=== PATIENT | male | born 1970 | race African-American/Black ===

== ENCOUNTER 2016-04-29 19:11 | Inpatient (IN) | payer MEDICAID ==
[~2016-04-29] VITALS: Ht 185.4 cm; Wt 84.4 kg
[~2016-04-29 19:11] MED LIST: RISP3 PO
[2016-04-29] MEDS ORDERED: ZOLPIDEM TARTRATE 10 MG TABLET PO PRN (19:45)
[2016-04-29] MEDS ORDERED: HALOPERIDOL 5 MG TABLET PO PRN (19:45)
[2016-04-29] MEDS ORDERED: LORazepam 2 MG TABLET PO PRN (19:45)
[2016-04-29] MEDS ORDERED: INFLUENZA VIRUS VACCINE QVS 2016-17 (3YR+)/PF 60 MCG/0.5 ML SYRINGE IM ONE (19:45)
[2016-04-29] MEDS ORDERED: LORazepam 2 MG/ML VIAL IM ONE (20:00)
[2016-04-29] MEDS ORDERED: HALOPERIDOL LACTATE 5 MG/ML VIAL IM ONE (20:00)
[2016-04-29] MEDS ORDERED: DiphenhydrAMINE HCL 50 MG/ML VIAL IM ONE (20:00)
[2016-04-29 20:15] VITALS: BP 128/72
[2016-04-29 20:45] VITALS: BP 119/69
[2016-04-30 08:23] VITALS: BP 108/62
[2016-04-30 08:31] LABS: BASOPHILS % (AUTO) 0.6 % (0.0-2.0); EOSINOPHILS % (AUTO) 4.1 % (1.0-6.0); HEMATOCRIT 37.3 % (41-53); HEMOGLOBIN 12.3 g/dL (13.5-17.5); LYMPHOCYTES # (AUTO) 2.1 K/uL (1.0-4.8); LYMPHOCYTES % (AUTO) 53.6 % (22.0-44.0); MEAN CORPUSCULAR HEMOGLOBIN 29.7 pg (26.0-34.0); MEAN CORPUSCULAR HGB CONC 32.9 G/dL (31.0-37.0); MEAN CORPUSCULAR VOLUME 90 fL (80-100); MONOCYTES # (AUTO) 0.3 K/uL (0.1-1.0); MONOCYTES % (AUTO) 8.6 % (2.0-9.0); NEUTROPHILS # (AUTO) 1.3 K/uL (1.8-7.7); NEUTROPHILS % (AUTO) 33.1 % (40.0-70.0); PLATELET COUNT (AUTO) 257 K/uL (150-450); RED BLOOD CELL COUNT(AUTO) 4.14 MIL/uL (4.50-5.90); RED CELL DISTRIBUTION WIDTH 13.9 % (11.5-14.5); WHITE BLOOD COUNT (AUTO) 3.9 K/uL (4.5-11.0)
[2016-04-30 09:00] LABS: ALANINE AMINOTRANSFERASE 27 U/L (12-78); ALBUMIN 3.3 g/dL (3.4-5.0); ANION GAP 8 mmol/L (8-16); ASPARTATE AMINOTRANSFERASE 25 U/L (15-37); BILIRUBIN,TOTAL 0.5 mg/dL (0.1-1.0); CALCIUM, TOTAL 8.4 mg/dL (8.8-10.5); CARBON DIOXIDE 28 mmol/L (22-29); CHLORIDE 110 mmol/L (98-107); CHOL/HDL RATIO 1.5 (4.2-7.3); CREATININE 0.99 mg/dL (0.60-1.30); GLOMERULAR FILTR. RATE CALC > 60 mL/min (>60); POTASSIUM 3.8 mmol/L (3.5-5.1); SODIUM SERUM 146 mmol/L (136-145); TOTAL PROTEIN, SERUM 6.3 g/dL (6.4-8.2); UREA NITROGEN, BLOOD 9 mg/dL (7-18)
[2016-04-30] MEDS: NICOTINE 14 MG/24 HOUR PATCH TD SCH (09:00)
[2016-04-30 09:32] LABS: THYROID STIMULATING HORMONE 0.78 uIU/mL (0.36-3.74)
[2016-04-30] MEDS ORDERED: MAGNESIUM HYDROXIDE SUSPENSION 30 ML UDCUP PO PRN (09:45)
[2016-04-30] MEDS ORDERED: ONDANSETRON HCL 4 MG TABLET PO PRN (09:45)
[2016-04-30] MEDS ORDERED: ACETAMINOPHEN 325 MG TABLET PO PRN (09:45)
[2016-04-30] MEDS ORDERED: PETROLATUM,WHITE 71 GM JELLY TP PRN (09:45)
[2016-04-30] MEDS ORDERED: CloNIDine HCL 0.1 MG TABLET PO PRN (09:45)
[2016-04-30] MEDS ORDERED: BACITRACIN 28.4 GM OINTMENT TP PRN (09:45)
[2016-04-30] MEDS ORDERED: IBUPROFEN 600 MG TABLET PO PRN (09:45)
[2016-04-30] MEDS ORDERED: BENZOCAINE/MENTHOL LOZENGE MM PRN (09:45)
[2016-04-30] MEDS ORDERED: ALBUTEROL SULFATE HFA 90 MCG/PUFF 8 GM INHALER IH PRN (09:45)
[2016-04-30] MEDS ORDERED: LOPERAMIDE HCL 2 MG CAPSULE PO PRN (09:45)
[2016-04-30 10:46] LABS: HEMOGLOBIN A1C 5.2 % (4.5-6.2)
[2016-04-30 16:00] VITALS: BP 130/77
[2016-05-01 06:30] VITALS: BP 110/61
[2016-05-01 08:19] VITALS: BP 102/68
[2016-05-01 08:48] LABS: ANION GAP 7 mmol/L (8-16); CALCIUM, TOTAL 8.8 mg/dL (8.8-10.5); CARBON DIOXIDE 32 mmol/L (22-29); CHLORIDE 105 mmol/L (98-107); CREATININE 1.03 mg/dL (0.60-1.30); GLOMERULAR FILTR. RATE CALC > 60 mL/min (>60); POTASSIUM 3.9 mmol/L (3.5-5.1); SODIUM SERUM 144 mmol/L (136-145); UREA NITROGEN, BLOOD 8 mg/dL (7-18)
[2016-05-01] MEDS: NICOTINE 14 MG/24 HOUR PATCH TD SCH (09:00)
[2016-05-01] MEDS: RisperiDONE 3 MG TABLET PO SCH ×2 (09:00→16:34)
[2016-05-01 16:32] VITALS: BP 123/74
[2016-05-02 06:44] VITALS: BP 105/66
[2016-05-02 08:26] VITALS: BP 119/67
[2016-05-02] MEDS: NICOTINE 14 MG/24 HOUR PATCH TD SCH (09:00)
[2016-05-02] MEDS: RisperiDONE 3 MG TABLET PO SCH ×2 (09:09→17:19)
[2016-05-02 16:08] VITALS: BP 120/72
[2016-05-03 06:35] VITALS: BP 107/63
[2016-05-03 08:44] VITALS: BP 122/69
[2016-05-03] MEDS: NICOTINE 14 MG/24 HOUR PATCH TD SCH (08:51)
[2016-05-03] MEDS: RisperiDONE 3 MG TABLET PO SCH ×2 (08:51→17:00)
[2016-05-03 16:19] VITALS: BP 127/78
[2016-05-03] MEDS: MAG HYDROX/AL HYDROX/SIMETH ES 30 ML SUSPENSION UDCUP PO PRN (21:11)
[2016-05-04 08:39] VITALS: BP 122/68
[2016-05-04] MEDS: NICOTINE 14 MG/24 HOUR PATCH TD SCH (09:00)
[2016-05-04] MEDS: RisperiDONE 3 MG TABLET PO SCH ×2 (09:00→16:18)
[2016-05-04] MEDS: OMEPRAZOLE 20 MG CAPSULE PO SCH (11:18)
[2016-05-04 14:18] VITALS: BP 118/72
[2016-05-04 16:07] VITALS: BP 137/83
[2016-05-05] MEDS: MAG HYDROX/AL HYDROX/SIMETH ES 30 ML SUSPENSION UDCUP PO PRN (00:35)
[2016-05-05 00:57] VITALS: BP 128/83
[2016-05-05] MEDS: OMEPRAZOLE 20 MG CAPSULE PO SCH (08:39)
[2016-05-05] MEDS: NICOTINE 14 MG/24 HOUR PATCH TD SCH (08:40)
[2016-05-05] MEDS: RisperiDONE 3 MG TABLET PO SCH (08:40)
[2016-05-05 09:08] VITALS: BP 117/62
[2016-05-05] MEDS ORDERED: OMEP20 PO (09:58)
[2016-05-05] MEDS ORDERED: LORazepam 2 MG/ML VIAL ONE (11:26)
[2016-05-05] MEDS ORDERED: DiphenhydrAMINE HCL 50 MG/ML VIAL ONE (11:26)
[2016-05-05] MEDS ORDERED: HALOPERIDOL LACTATE 5 MG/ML VIAL ONE (11:26)
== END 2016-05-05 12:19 | disposition home or self-care (01) | DRG 750 ==
LOC: B3A 19:54 → EDSTATUS 19:59 → B3A 05-04 18:51
PROVIDERS: ADMIT Psychiatry & Neurology Psychiatry; ATTEND Psychiatry & Neurology Psychiatry
DX: F20.0 Paranoid schizophrenia (principal); E87.0 Hyperosmolality and hypernatremia; E83.51 Hypocalcemia; E44.1 Mild protein-calorie malnutrition; F17.210 Nicotine dependence, cigarettes, uncomplicated; F10.10 Alcohol abuse, uncomplicated; F12.90 Cannabis use, unspecified, uncomplicated; F14.90 Cocaine use, unspecified, uncomplicated; K21.9 Gastro-esophageal reflux disease without esophagitis; F15.10 Other stimulant abuse, uncomplicated; Z71.6 Tobacco abuse counseling; Z79.899 Other long term (current) drug therapy; Z88.6 Allergy status to analgesic agent; Z68.24 Body mass index [BMI] 24.0-24.9, adult; Z28.21 Immunization not carried out because of patient refusal
CPT/HCPCS: 82306; 83036; 84439; 84443; 90471; J1200; J1630; J2060

== ENCOUNTER 2016-05-13 05:02 | Inpatient (IN) | payer MEDICAID ==
[~2016-05-13] VITALS: Ht 185.4 cm; Wt 85.8 kg
[~2016-05-13 05:02] MED LIST changes: +OMEP20 PO
[2016-05-13] MEDS ORDERED: LORazepam 1 MG TABLET PO PRN (09:15)
[2016-05-13] MEDS ORDERED: HALOPERIDOL 5 MG TABLET PO PRN (09:15)
[2016-05-13] MEDS ORDERED: ZOLPIDEM TARTRATE 5 MG TABLET PO PRN (09:15)
[2016-05-13 09:49] VITALS: BP 107/68
[2016-05-13] MEDS ORDERED: RISP2 PO (10:49)
[2016-05-13 16:14] VITALS: BP 113/64
[2016-05-13] MEDS ORDERED: IBUPROFEN 600 MG TABLET PO PRN (16:15)
[2016-05-13] MEDS ORDERED: MAG HYDROX/AL HYDROX/SIMETH ES 30 ML SUSPENSION UDCUP PO PRN (16:15)
[2016-05-13] MEDS ORDERED: MAGNESIUM HYDROXIDE SUSPENSION 30 ML UDCUP PO PRN (16:15)
[2016-05-13] MEDS ORDERED: BACITRACIN 28.4 GM OINTMENT TP PRN (16:15)
[2016-05-13] MEDS ORDERED: ACETAMINOPHEN 325 MG TABLET PO PRN (16:15)
[2016-05-13] MEDS ORDERED: BENZOCAINE/MENTHOL LOZENGE MM PRN (16:15)
[2016-05-13] MEDS ORDERED: ALBUTEROL SULFATE HFA 90 MCG/PUFF 8 GM INHALER IH PRN (16:15)
[2016-05-13] MEDS ORDERED: ONDANSETRON HCL 4 MG TABLET PO PRN (16:15)
[2016-05-13] MEDS ORDERED: CloNIDine HCL 0.1 MG TABLET PO PRN (16:15)
[2016-05-13] MEDS ORDERED: LOPERAMIDE HCL 2 MG CAPSULE PO PRN (16:15)
[2016-05-13] MEDS ORDERED: PETROLATUM,WHITE 71 GM JELLY TP PRN (16:15)
[2016-05-13 18:12] VITALS: BP 128/79
[2016-05-14 08:43] VITALS: BP 116/70
[2016-05-14] MEDS: RisperiDONE 2 MG TABLET PO SCH ×2 (09:00→17:00)
[2016-05-14 16:09] VITALS: BP 117/66
[2016-05-15 02:23] VITALS: BP 128/60
[2016-05-15 08:18] VITALS: BP 100/58
[2016-05-15] MEDS: RisperiDONE 2 MG TABLET PO SCH ×2 (09:00→17:27)
[2016-05-15 16:22] VITALS: BP 116/68
[2016-05-15] MEDS: OMEPRAZOLE 20 MG CAPSULE PO SCH (17:27)
[2016-05-15] MEDS: MUPIROCIN CALCIUM 2% 22 GM OINTMENT TP SCH (17:27)
[2016-05-16 08:30] VITALS: BP 112/61
[2016-05-16] MEDS: OMEPRAZOLE 20 MG CAPSULE PO SCH (09:26)
[2016-05-16] MEDS: RisperiDONE 2 MG TABLET PO SCH ×2 (09:26→16:35)
[2016-05-16] MEDS: MUPIROCIN CALCIUM 2% 22 GM OINTMENT TP SCH ×2 (09:29→16:35)
[2016-05-16 16:27] VITALS: BP 110/71
[2016-05-17] MEDS: OMEPRAZOLE 20 MG CAPSULE PO SCH (09:25)
[2016-05-17] MEDS: RisperiDONE 2 MG TABLET PO SCH ×2 (09:25→17:06)
[2016-05-17] MEDS: MUPIROCIN CALCIUM 2% 22 GM OINTMENT TP SCH ×2 (09:26→17:06)
[2016-05-17 10:04] VITALS: BP 103/69
[2016-05-17 16:15] VITALS: BP 103/63
[2016-05-18 08:02] LABS: APPEARANCE,URINE CLEAR (CLEAR); GLUCOSE, URINE (UA) NEGATIVE (NEGATIVE); KETONES,URINE NEGATIVE (NEGATIVE); LEUKOCYTE ESTERASE ,URINE NEGATIVE (NEGATIVE); OCCULT BLOOD,URINE NEGATIVE (NEGATIVE); PROTEIN,URINE NEGATIVE (NEGATIVE)
[2016-05-18 08:47] VITALS: BP 104/64
[2016-05-18 09:04] LABS: RBC,URINE None Seen /HPF (0-2); SQUAMOUS EPITHELIAL CELL,UR None Seen /LPF (None Seen); WBC,URINE None Seen /HPF (0-5)
[2016-05-18] MEDS: RisperiDONE 2 MG TABLET PO SCH ×2 (09:18→17:06)
[2016-05-18] MEDS: OMEPRAZOLE 20 MG CAPSULE PO SCH (09:18)
[2016-05-18] MEDS: MUPIROCIN CALCIUM 2% 22 GM OINTMENT TP SCH ×2 (09:18→17:06)
[2016-05-18 16:25] VITALS: BP 113/77
[2016-05-19 08:28] VITALS: BP 120/80
[2016-05-19] MEDS: MUPIROCIN CALCIUM 2% 22 GM OINTMENT TP SCH ×2 (09:00→16:47)
[2016-05-19] MEDS: RisperiDONE 2 MG TABLET PO SCH ×2 (11:11→16:47)
[2016-05-19] MEDS: OMEPRAZOLE 20 MG CAPSULE PO SCH (11:11)
[2016-05-19 18:50] VITALS: BP 134/83
[2016-05-20 08:53] VITALS: BP 122/88
[2016-05-20] MEDS: RisperiDONE 2 MG TABLET PO SCH (08:53)
[2016-05-20] MEDS: OMEPRAZOLE 20 MG CAPSULE PO SCH (08:53)
[2016-05-20] MEDS: MUPIROCIN CALCIUM 2% 22 GM OINTMENT TP SCH (09:00)
[2016-05-20] MEDS ORDERED: OMEP20 PO (11:37)
== END 2016-05-20 13:00 | disposition home or self-care (01) | DRG 750 ==
LOC: B2S 08:00 → EDSTATUS 08:37 → B2S 05-15 11:57 → 3EI 05-15 18:10
PROVIDERS: ADMIT Psychiatry & Neurology Psychiatry; ATTEND Psychiatry & Neurology Psychiatry
DX: F20.0 Paranoid schizophrenia (principal); E55.9 Vitamin D deficiency, unspecified; F17.200 Nicotine dependence, unspecified, uncomplicated; F12.90 Cannabis use, unspecified, uncomplicated; G47.00 Insomnia, unspecified; F15.10 Other stimulant abuse, uncomplicated; K21.9 Gastro-esophageal reflux disease without esophagitis; Z88.6 Allergy status to analgesic agent; Z59.0 Homelessness; Z22.322 Carrier or suspected carrier of Methicillin resistant Staphylococcus aureus
CPT/HCPCS: 87081

== ENCOUNTER 2016-05-21 23:57 | Inpatient (IN) | payer MEDICAID ==
[~2016-05-21] VITALS: Ht 185.4 cm; Wt 87.7 kg
[~2016-05-21 23:57] MED LIST changes: +RISP2 PO
[2016-05-22 00:43] LABS: BASOPHILS # (AUTO) 0.03 K/uL (0.00-0.20); BASOPHILS % (AUTO) 0.4 % (0.0-2.0); EOSINOPHILS # (AUTO) 0.29 K/uL (0.00-0.70); EOSINOPHILS % (AUTO) 4.38 % (1.0-6.0); HEMOGLOBIN 13.3 g/dL (13.5-17.5); LYMPHOCYTES # (AUTO) 2.9 K/uL (1.0-4.8); LYMPHOCYTES % (AUTO) 44.5 % (22.0-44.0); MEAN CORPUSCULAR HGB CONC 34.1 G/dL (31.0-37.0); MEAN CORPUSCULAR VOLUME 88 fL (80-100); MONOCYTES # (AUTO) 0.6 K/uL (0.1-1.0); MONOCYTES % (AUTO) 9.8 % (2.0-9.0); NEUTROPHILS # (AUTO) 2.7 K/uL (1.8-7.7); NEUTROPHILS % (AUTO) 40.9 % (40.0-70.0); PLATELET COUNT (AUTO) 283 K/uL (150-450); RED BLOOD CELL COUNT(AUTO) 4.43 MIL/uL (4.50-5.90); WHITE BLOOD COUNT (AUTO) 6.6 K/uL (4.5-11.0)
[2016-05-22 00:44] LABS: ANION GAP 8 mmol/L (8-16); CALCIUM, TOTAL 9.1 mg/dL (8.8-10.5); CARBON DIOXIDE 30 mmol/L (22-29); CHLORIDE 107 mmol/L (98-107); CREATININE 1.18 mg/dL (0.60-1.30); GLOMERULAR FILTR. RATE CALC > 60 mL/min (>60); POTASSIUM 3.4 mmol/L (3.5-5.1); SODIUM SERUM 145 mmol/L (136-145); UREA NITROGEN, BLOOD 11 mg/dL (7-18)
[2016-05-22 00:50] LABS: ALANINE AMINOTRANSFERASE 30 U/L (12-78); ASPARTATE AMINOTRANSFERASE 37 U/L (15-37); BILIRUBIN,TOTAL 0.2 mg/dL (0.1-1.0); TOTAL PROTEIN, SERUM 7.4 g/dL (6.4-8.2)
[2016-05-22] MEDS ORDERED: HALOPERIDOL 5 MG TABLET PO PRN (04:15)
[2016-05-22] MEDS ORDERED: ZOLPIDEM TARTRATE 10 MG TABLET PO PRN (04:15)
[2016-05-22] MEDS ORDERED: LORazepam 2 MG TABLET PO PRN (04:15)
[2016-05-22 05:08] VITALS: BP 128/67
[2016-05-22] MEDS ORDERED: INFLUENZA VIRUS VACCINE QVS 2016-17 (3YR+)/PF 60 MCG/0.5 ML SYRINGE IM ONE (05:15)
[2016-05-22] MEDS ORDERED: BACITRACIN 28.4 GM OINTMENT TP PRN (09:15)
[2016-05-22] MEDS ORDERED: ACETAMINOPHEN 325 MG TABLET PO PRN (09:15)
[2016-05-22] MEDS ORDERED: ONDANSETRON HCL 4 MG TABLET PO PRN (09:15)
[2016-05-22] MEDS ORDERED: LOPERAMIDE HCL 2 MG CAPSULE PO PRN (09:15)
[2016-05-22] MEDS ORDERED: MAG HYDROX/AL HYDROX/SIMETH ES 30 ML SUSPENSION UDCUP PO PRN (09:15)
[2016-05-22] MEDS ORDERED: MAGNESIUM HYDROXIDE SUSPENSION 30 ML UDCUP PO PRN (09:15)
[2016-05-22] MEDS ORDERED: PETROLATUM,WHITE 71 GM JELLY TP PRN (09:15)
[2016-05-22] MEDS ORDERED: POTASSIUM CHLORIDE 20 MEQ ER TABLET PO ONE (09:15)
[2016-05-22] MEDS ORDERED: BENZOCAINE/MENTHOL LOZENGE [8 LOZENGES/PACKET] MM PRN (09:15)
[2016-05-22] MEDS ORDERED: CloNIDine HCL 0.1 MG TABLET PO PRN (09:15)
[2016-05-22] MEDS ORDERED: IBUPROFEN 600 MG TABLET PO PRN (09:15)
[2016-05-22] MEDS ORDERED: ALBUTEROL SULFATE HFA 90 MCG/PUFF 8 GM INHALER IH PRN (09:15)
[2016-05-22 09:58] VITALS: BP 137/89
[2016-05-22] MEDS: RisperiDONE 2 MG TABLET PO SCH (16:37)
[2016-05-22 16:55] VITALS: BP 107/65
[2016-05-23 08:00] VITALS: BP 115/74
[2016-05-23] MEDS: RisperiDONE 2 MG TABLET PO SCH ×2 (09:18→17:34)
[2016-05-23 16:47] VITALS: BP 116/77
[2016-05-23] MEDS: OMEPRAZOLE 20 MG CAPSULE PO SCH (20:54)
[2016-05-24 08:00] VITALS: BP 114/74
[2016-05-24] MEDS: OMEPRAZOLE 20 MG CAPSULE PO SCH (08:54)
[2016-05-24] MEDS: RisperiDONE 2 MG TABLET PO SCH ×2 (08:54→17:11)
[2016-05-24 17:30] VITALS: BP 115/77
[2016-05-25] MEDS: RisperiDONE 2 MG TABLET PO SCH (09:47)
[2016-05-25] MEDS: OMEPRAZOLE 20 MG CAPSULE PO SCH (09:47)
[2016-05-25] MEDS ORDERED: RISP2 PO (10:02)
[2016-05-25] MEDS ORDERED: OMEP20 PO (10:03)
[2016-05-25 11:55] VITALS: BP 125/78
== END 2016-05-25 12:00 | disposition home or self-care (01) | DRG 750 ==
LOC: EMS 23:59 → 3EI 05-22 03:54
PROVIDERS: ADMIT Psychiatry & Neurology Psychiatry; ATTEND Psychiatry & Neurology Psychiatry
PROC: 3E0234Z Introduction of Serum, Toxoid and Vaccine into Muscle, Percutaneous Approach (ICD-10-PCS; principal; 2016-05-22)
DX: F25.9 Schizoaffective disorder, unspecified (principal); F22 Delusional disorders; F32.9 Major depressive disorder, single episode, unspecified; K21.9 Gastro-esophageal reflux disease without esophagitis; F17.210 Nicotine dependence, cigarettes, uncomplicated; E87.6 Hypokalemia; F12.90 Cannabis use, unspecified, uncomplicated; G47.00 Insomnia, unspecified; Z88.6 Allergy status to analgesic agent; Z71.6 Tobacco abuse counseling; Z23 Encounter for immunization
CPT/HCPCS: 84132; 87081; 99285; J3535

== ENCOUNTER 2016-05-30 19:26 | Inpatient (IN) | payer MEDICAID ==
[~2016-05-30] VITALS: Ht 185.4 cm; Wt 85.5 kg
[~2016-05-30 19:26] MED LIST changes: -RISP3 PO
[2016-05-30] MEDS ORDERED: ZOLPIDEM TARTRATE 10 MG TABLET PO PRN (20:45)
[2016-05-30] MEDS ORDERED: HALOPERIDOL 5 MG TABLET PO PRN (20:45)
[2016-05-30] MEDS ORDERED: LORazepam 2 MG TABLET PO PRN (20:45)
[2016-05-30 21:35] VITALS: BP 132/71
[2016-05-31 00:02] VITALS: BP 105/67
[2016-05-31 07:56] LABS: BASOPHILS % (AUTO) 0.7 % (0.0-2.0); EOSINOPHILS % (AUTO) 7.5 % (1.0-6.0); HEMATOCRIT 38.1 % (41-53); HEMOGLOBIN 12.3 g/dL (13.5-17.5); LYMPHOCYTES # (AUTO) 2.4 K/uL (1.0-4.8); LYMPHOCYTES % (AUTO) 51.1 % (22.0-44.0); MEAN CORPUSCULAR HEMOGLOBIN 29.2 pg (26.0-34.0); MEAN CORPUSCULAR HGB CONC 32.4 G/dL (31.0-37.0); MEAN CORPUSCULAR VOLUME 90 fL (80-100); MONOCYTES # (AUTO) 0.4 K/uL (0.1-1.0); MONOCYTES % (AUTO) 9.6 % (2.0-9.0); NEUTROPHILS # (AUTO) 1.5 K/uL (1.8-7.7); NEUTROPHILS % (AUTO) 31.1 % (40.0-70.0); PLATELET COUNT (AUTO) 229 K/uL (150-450); RED BLOOD CELL COUNT(AUTO) 4.21 MIL/uL (4.50-5.90); WHITE BLOOD COUNT (AUTO) 4.7 K/uL (4.5-11.0)
[2016-05-31 08:15] LABS: ALANINE AMINOTRANSFERASE 34 U/L (12-78); ALBUMIN 3.6 g/dL (3.4-5.0); ANION GAP 9 mmol/L (8-16); ASPARTATE AMINOTRANSFERASE 26 U/L (15-37); BILIRUBIN,TOTAL 0.5 mg/dL (0.1-1.0); CALCIUM, TOTAL 8.6 mg/dL (8.8-10.5); CARBON DIOXIDE 28 mmol/L (22-29); CHLORIDE 105 mmol/L (98-107); CREATININE 0.92 mg/dL (0.60-1.30); GLOMERULAR FILTR. RATE CALC > 60 mL/min (>60); SODIUM SERUM 142 mmol/L (136-145); TOTAL PROTEIN, SERUM 6.6 g/dL (6.4-8.2); UREA NITROGEN, BLOOD 7 mg/dL (7-18)
[2016-05-31 08:30] VITALS: BP 107/65
[2016-05-31] MEDS ORDERED: BACITRACIN 28.4 GM OINTMENT TP PRN (08:45)
[2016-05-31] MEDS ORDERED: ALBUTEROL SULFATE HFA 90 MCG/PUFF 8 GM INHALER IH PRN (08:45)
[2016-05-31] MEDS ORDERED: IBUPROFEN 600 MG TABLET PO PRN (08:45)
[2016-05-31] MEDS ORDERED: ACETAMINOPHEN 325 MG TABLET PO PRN (08:45)
[2016-05-31] MEDS ORDERED: PETROLATUM,WHITE 71 GM JELLY TP PRN (08:45)
[2016-05-31] MEDS ORDERED: MAGNESIUM HYDROXIDE SUSPENSION 30 ML UDCUP PO PRN (08:45)
[2016-05-31] MEDS ORDERED: LOPERAMIDE HCL 2 MG CAPSULE PO PRN (08:45)
[2016-05-31] MEDS ORDERED: BENZOCAINE/MENTHOL LOZENGE MM PRN (08:45)
[2016-05-31] MEDS ORDERED: CloNIDine HCL 0.1 MG TABLET PO PRN (08:45)
[2016-05-31] MEDS ORDERED: MAG HYDROX/AL HYDROX/SIMETH ES 30 ML SUSPENSION UDCUP PO PRN (08:45)
[2016-05-31] MEDS ORDERED: ONDANSETRON HCL 4 MG TABLET PO PRN (08:45)
[2016-05-31] MEDS: CHOLECALCIFEROL (VIT D3) 1,000 UNITS TABLET PO SCH (10:34)
[2016-05-31] MEDS: DIVALPROEX SODIUM 500 MG DR TABLET PO SCH ×2 (10:45→16:29)
[2016-05-31] MEDS: RisperiDONE 2 MG TABLET PO SCH ×2 (11:27→16:29)
[2016-05-31 16:02] VITALS: BP 104/57
[2016-06-01 08:53] VITALS: BP 100/51
[2016-06-01] MEDS: CHOLECALCIFEROL (VIT D3) 1,000 UNITS TABLET PO SCH (08:53)
[2016-06-01] MEDS: RisperiDONE 2 MG TABLET PO SCH ×2 (08:53→16:10)
[2016-06-01] MEDS: DIVALPROEX SODIUM 500 MG DR TABLET PO SCH ×3 (08:54→17:00)
[2016-06-01 14:21] VITALS: BP 100/55
[2016-06-01 16:18] VITALS: BP 110/62
[2016-06-02 00:01] VITALS: BP 119/68
[2016-06-02 08:46] VITALS: BP 100/50
[2016-06-02] MEDS: DIVALPROEX SODIUM 500 MG DR TABLET PO SCH ×2 (09:00→17:00)
[2016-06-02] MEDS: RisperiDONE 2 MG TABLET PO SCH ×2 (09:08→16:25)
[2016-06-02] MEDS: CHOLECALCIFEROL (VIT D3) 1,000 UNITS TABLET PO SCH (09:08)
[2016-06-02 16:00] VITALS: BP 108/69
[2016-06-03 08:16] VITALS: BP 108/65
[2016-06-03] MEDS: DIVALPROEX SODIUM 500 MG DR TABLET PO SCH ×3 (09:00→16:39)
[2016-06-03] MEDS: RisperiDONE 2 MG TABLET PO SCH ×2 (09:19→16:34)
[2016-06-03] MEDS: CHOLECALCIFEROL (VIT D3) 1,000 UNITS TABLET PO SCH (09:19)
[2016-06-03 16:13] VITALS: BP 111/61
[2016-06-04 07:16] VITALS: BP 120/82
[2016-06-04 08:34] VITALS: BP 107/66
[2016-06-04] MEDS: DIVALPROEX SODIUM 500 MG DR TABLET PO SCH ×2 (09:00→17:00)
[2016-06-04] MEDS: CHOLECALCIFEROL (VIT D3) 1,000 UNITS TABLET PO SCH (09:57)
[2016-06-04] MEDS: RisperiDONE 2 MG TABLET PO SCH ×2 (09:57→16:24)
[2016-06-04] MEDS ORDERED: DIVA250T4 PO (15:10)
[2016-06-04] MEDS ORDERED: CHOL100034 PO (15:12)
[2016-06-04] MEDS ORDERED: ALBU2SYR PO (15:13)
[2016-06-04] MEDS ORDERED: ALBU8HFA4 IH (15:26)
[2016-06-04] MEDS ORDERED: ALBU8HFA IH (15:28)
== END 2016-06-04 20:51 | disposition home or self-care (01) | DRG 750 ==
LOC: B2S 20:35 → EDSTATUS 20:48 → B2S 06-01 18:26
PROVIDERS: ADMIT Psychiatry & Neurology Psychiatry; ATTEND Psychiatry & Neurology Psychiatry
DX: F25.9 Schizoaffective disorder, unspecified (principal); E55.9 Vitamin D deficiency, unspecified; F12.90 Cannabis use, unspecified, uncomplicated; G47.00 Insomnia, unspecified; F22 Delusional disorders; F17.200 Nicotine dependence, unspecified, uncomplicated; Z53.29 Procedure and treatment not carried out because of patient's decision for other reasons; Z71.51 Drug abuse counseling and surveillance of drug abuser; Z71.6 Tobacco abuse counseling; Z88.6 Allergy status to analgesic agent; Z79.899 Other long term (current) drug therapy; F20.9 Schizophrenia, unspecified
CPT/HCPCS: 87081

== ENCOUNTER 2016-06-27 21:11 | Emergency (ER) | payer MEDICAID ==
[~2016-06-27] VITALS: Ht 182.9 cm; Wt 104.5 kg
[~2016-06-27 21:11] MED LIST changes: +ALBU8HFA IH; +CHOL100034 PO; +DIVA250T4 PO; -OMEP20 PO
[2016-06-27 21:41] LABS: BASOPHILS # (AUTO) 0.03 K/uL (0.00-0.20); BASOPHILS % (AUTO) 0.5 % (0.0-2.0); EOSINOPHILS % (AUTO) 5.17 % (1.0-6.0); HEMATOCRIT 39.7 % (41-53); HEMOGLOBIN 13.1 g/dL (13.5-17.5); LYMPHOCYTES # (AUTO) 2.8 K/uL (1.0-4.8); LYMPHOCYTES % (AUTO) 46.7 % (22.0-44.0); MEAN CORPUSCULAR HEMOGLOBIN 29.6 pg (26.0-34.0); MEAN CORPUSCULAR VOLUME 90 fL (80-100); MONOCYTES # (AUTO) 0.5 K/uL (0.1-1.0); MONOCYTES % (AUTO) 8.1 % (2.0-9.0); NEUTROPHILS # (AUTO) 2.3 K/uL (1.8-7.7); NEUTROPHILS % (AUTO) 39.4 % (40.0-70.0); PLATELET COUNT (AUTO) 241 K/uL (150-450); RED BLOOD CELL COUNT(AUTO) 4.42 MIL/uL (4.50-5.90); RED CELL DISTRIBUTION WIDTH 13.6 % (11.5-14.5); WHITE BLOOD COUNT (AUTO) 5.9 K/uL (4.5-11.0)
[2016-06-27 21:53] LABS: ANION GAP 11 mmol/L (8-16); CALCIUM, TOTAL 8.9 mg/dL (8.8-10.5); CARBON DIOXIDE 27 mmol/L (22-29); CHLORIDE 103 mmol/L (98-107); CREATININE 0.81 mg/dL (0.60-1.30); GLOMERULAR FILTR. RATE CALC > 60 mL/min (>60); POTASSIUM 3.4 mmol/L (3.5-5.1); SODIUM SERUM 141 mmol/L (136-145); UREA NITROGEN, BLOOD 5 mg/dL (7-18)
[2016-06-27 21:59] LABS: ALANINE AMINOTRANSFERASE 37 U/L (12-78); ALBUMIN 3.9 g/dL (3.4-5.0); ASPARTATE AMINOTRANSFERASE 33 U/L (15-37); BILIRUBIN,TOTAL 0.4 mg/dL (0.1-1.0); TOTAL PROTEIN, SERUM 7.3 g/dL (6.4-8.2)
[2016-06-27] MEDS ORDERED: HALOPERIDOL LACTATE 5 MG/ML VIAL IM ONE (22:00)
[2016-06-27] MEDS ORDERED: DiphenhydrAMINE HCL 50 MG/ML VIAL IM ONE (22:00)
[2016-06-27] MEDS ORDERED: LORazepam 2 MG/ML VIAL IM ONE (22:00)
[2016-06-28 08:55] VITALS: BP 122/69
== END 2016-06-28 09:01 | disposition home or self-care (01) ==
LOC: EMS 21:13
DX: R44.0 Auditory hallucinations (principal); F15.10 Other stimulant abuse, uncomplicated; F10.229 Alcohol dependence with intoxication, unspecified; E87.6 Hypokalemia; F31.9 Bipolar disorder, unspecified; F20.9 Schizophrenia, unspecified; K21.9 Gastro-esophageal reflux disease without esophagitis; F17.210 Nicotine dependence, cigarettes, uncomplicated; Y90.7 Blood alcohol level of 200-239 mg/100 ml
CPT/HCPCS: 36415; 80053; 85025; 96372; 99284; G0480; J1200; J1630; J2060

== ENCOUNTER 2016-06-28 12:30 | Emergency (ER) | payer MEDICAID ==
[~2016-06-28] VITALS: Ht 185.4 cm; Wt 86.4 kg
[2016-06-28 13:59] LABS: BASOPHILS % (AUTO) 0.5 % (0.0-2.0); EOSINOPHILS % (AUTO) 5.6 % (1.0-6.0); HEMATOCRIT 42.4 % (41-53); HEMOGLOBIN 13.6 g/dL (13.5-17.5); LYMPHOCYTES # (AUTO) 1.6 K/uL (1.0-4.8); LYMPHOCYTES % (AUTO) 35.6 % (22.0-44.0); MEAN CORPUSCULAR HEMOGLOBIN 28.7 pg (26.0-34.0); MEAN CORPUSCULAR VOLUME 90 fL (80-100); MONOCYTES # (AUTO) 0.4 K/uL (0.1-1.0); MONOCYTES % (AUTO) 8.8 % (2.0-9.0); NEUTROPHILS # (AUTO) 2.2 K/uL (1.8-7.7); NEUTROPHILS % (AUTO) 49.5 % (40.0-70.0); PLATELET COUNT (AUTO) 241 K/uL (150-450); RED BLOOD CELL COUNT(AUTO) 4.73 MIL/uL (4.50-5.90); RED CELL DISTRIBUTION WIDTH 14.3 % (11.5-14.5); WHITE BLOOD COUNT (AUTO) 4.5 K/uL (4.5-11.0)
[2016-06-28 14:11] LABS: ANION GAP 8 mmol/L (8-16); CALCIUM, TOTAL 9.4 mg/dL (8.8-10.5); CARBON DIOXIDE 31 mmol/L (22-29); CHLORIDE 104 mmol/L (98-107); CREATININE 0.89 mg/dL (0.60-1.30); GLOMERULAR FILTR. RATE CALC > 60 mL/min (>60); POTASSIUM 4.2 mmol/L (3.5-5.1); SODIUM SERUM 143 mmol/L (136-145); UREA NITROGEN, BLOOD 6 mg/dL (7-18)
[2016-06-28 14:19] LABS: ALANINE AMINOTRANSFERASE 38 U/L (12-78); ALBUMIN 3.9 g/dL (3.4-5.0); ASPARTATE AMINOTRANSFERASE 41 U/L (15-37); BILIRUBIN,TOTAL 0.7 mg/dL (0.1-1.0); TOTAL PROTEIN, SERUM 7.5 g/dL (6.4-8.2)
[2016-06-28] MEDS ORDERED: HALOPERIDOL 5 MG TABLET PO ONE (16:00)
[2016-06-28] MEDS ORDERED: RisperiDONE 1 MG TABLET PO ONE (16:00)
[2016-06-28 16:12] VITALS: BP 118/72
== END 2016-06-28 16:18 | disposition home or self-care (01) ==
LOC: EMS 12:32
DX: F20.9 Schizophrenia, unspecified (principal); F15.10 Other stimulant abuse, uncomplicated; F17.210 Nicotine dependence, cigarettes, uncomplicated; F31.9 Bipolar disorder, unspecified; K21.9 Gastro-esophageal reflux disease without esophagitis; Z88.6 Allergy status to analgesic agent
CPT/HCPCS: 36415; 80053; 80307; 85025; 99284; 99406; G0480

== ENCOUNTER 2016-08-14 01:21 | Emergency (ER) | payer MEDICAID ==
[~2016-08-14] VITALS: Ht 185.4 cm; Wt 86.4 kg
[2016-08-14 02:42] LABS: ANION GAP 8 mmol/L (8-16); CALCIUM, TOTAL 8.9 mg/dL (8.8-10.5); CARBON DIOXIDE 26 mmol/L (22-29); CHLORIDE 105 mmol/L (98-107); CREATININE 1.05 mg/dL (0.60-1.30); GLOMERULAR FILTR. RATE CALC > 60 mL/min (>60); POTASSIUM 3.1 mmol/L (3.5-5.1); SODIUM SERUM 139 mmol/L (136-145); UREA NITROGEN, BLOOD 9 mg/dL (7-18)
[2016-08-14 02:43] LABS: BASOPHILS # (AUTO) 0.01 K/uL (0.00-0.20); BASOPHILS % (AUTO) 0.2 % (0.0-2.0); EOSINOPHILS # (AUTO) 0.17 K/uL (0.00-0.70); EOSINOPHILS % (AUTO) 2.01 % (1.0-6.0); HEMATOCRIT 40.3 % (41-53); HEMOGLOBIN 13.1 g/dL (13.5-17.5); LYMPHOCYTES % (AUTO) 36.7 % (22.0-44.0); MEAN CORPUSCULAR HEMOGLOBIN 30.1 pg (26.0-34.0); MEAN CORPUSCULAR HGB CONC 32.6 G/dL (31.0-37.0); MEAN CORPUSCULAR VOLUME 92 fL (80-100); MONOCYTES # (AUTO) 0.5 K/uL (0.1-1.0); MONOCYTES % (AUTO) 6.2 % (2.0-9.0); NEUTROPHILS # (AUTO) 4.5 K/uL (1.8-7.7); PLATELET COUNT (AUTO) 262 K/uL (150-450); RED BLOOD CELL COUNT(AUTO) 4.36 MIL/uL (4.50-5.90); RED CELL DISTRIBUTION WIDTH 14.9 % (11.5-14.5); WHITE BLOOD COUNT (AUTO) 8.3 K/uL (4.5-11.0)
[2016-08-14 02:49] LABS: ALANINE AMINOTRANSFERASE 50 U/L (12-78); ALBUMIN 3.9 g/dL (3.4-5.0); ASPARTATE AMINOTRANSFERASE 30 U/L (15-37); BILIRUBIN,TOTAL 0.2 mg/dL (0.1-1.0); TOTAL PROTEIN, SERUM 6.9 g/dL (6.4-8.2)
[2016-08-14 04:04] VITALS: BP 133/72
== END 2016-08-14 04:18 | disposition home or self-care (01) ==
LOC: EMS 01:22
DX: F25.9 Schizoaffective disorder, unspecified (principal); M79.672 Pain in left foot; M79.671 Pain in right foot; F31.9 Bipolar disorder, unspecified; F12.90 Cannabis use, unspecified, uncomplicated; K21.9 Gastro-esophageal reflux disease without esophagitis; F17.210 Nicotine dependence, cigarettes, uncomplicated; F19.90 Other psychoactive substance use, unspecified, uncomplicated; Z88.5 Allergy status to narcotic agent
CPT/HCPCS: 36415; 80053; 85025; 99284; G0480

== ENCOUNTER 2018-10-11 02:38 | Emergency (ER) | payer MEDICAID ==
[~2018-10-11] VITALS: Ht 185.4 cm; Wt 81.8 kg
[2018-10-11 03:23] LABS: BASOPHILS % (AUTO) 0.8 % (0.0-2.0); HEMATOCRIT 42.7 % (41-53); HEMOGLOBIN 14.2 g/dL (13.5-17.5); LYMPHOCYTES # (AUTO) 2.3 K/uL (1.0-4.8); LYMPHOCYTES % (AUTO) 38.2 % (22.0-44.0); MEAN CORPUSCULAR HEMOGLOBIN 28.6 pg (26.0-34.0); MEAN CORPUSCULAR HGB CONC 33.2 G/dL (31.0-37.0); MEAN CORPUSCULAR VOLUME 86 fL (80-100); MONOCYTES # (AUTO) 0.9 K/uL (0.1-1.0); MONOCYTES % (AUTO) 15.2 % (2.0-9.0); NEUTROPHILS # (AUTO) 2.6 K/uL (1.8-7.7); NEUTROPHILS % (AUTO) 43.8 % (40.0-70.0); PLATELET COUNT (AUTO) 285 K/uL (150-450); RED BLOOD CELL COUNT(AUTO) 4.95 MIL/uL (4.50-5.90); RED CELL DISTRIBUTION WIDTH 14.5 % (11.5-14.5)
[2018-10-11 03:38] LABS: ALANINE AMINOTRANSFERASE 28 U/L (12-78); ALBUMIN 4.2 g/dL (3.4-5.0); ALKALINE PHOSPHATASE 61 U/L (46-116); ANION GAP 9 mmol/L (8-16); ASPARTATE AMINOTRANSFERASE 32 U/L (15-37); BILIRUBIN,TOTAL 0.9 mg/dL (0.1-1.0); CALCIUM, TOTAL 9.6 mg/dL (8.8-10.5); CARBON DIOXIDE 29 mmol/L (22-29); CHLORIDE 98 mmol/L (98-107); CREATININE 1.29 mg/dL (0.60-1.30); GLOMERULAR FILTR. RATE CALC > 60 mL/min (>60); GLUCOSE,RANDOM 95 mg/dL (70-110); LIPASE 199 U/L (73-393); SODIUM SERUM 136 mmol/L (136-145); TOTAL PROTEIN, SERUM 7.6 g/dL (6.4-8.2); UREA NITROGEN, BLOOD 13 mg/dL (7-18)
[2018-10-11] MEDS ORDERED: FAMOTIDINE 20 MG TABLET PO ONE (04:15)
[2018-10-11] MEDS ORDERED: MAG HYDROX/AL HYDROX/SIMETH ES 30 ML SUSPENSION UDCUP PO ONE (04:15)
[2018-10-11] MEDS ORDERED: ONDANSETRON HCL 4 MG TABLET PO ONE (04:15)
[2018-10-11] MEDS ORDERED: ACETAMINOPHEN 500 MG TABLET PO ONE (04:15)
[2018-10-11] MEDS ORDERED: POTASSIUM CHLORIDE 20 MEQ ER TABLET PO ONE (04:15)
[2018-10-11 04:47] VITALS: BP 117/71
== END 2018-10-11 05:03 | disposition home or self-care (01) ==
LOC: EMS 02:39
DX: E87.6 Hypokalemia (principal); R10.13 Epigastric pain; K21.9 Gastro-esophageal reflux disease without esophagitis; F31.9 Bipolar disorder, unspecified; F20.9 Schizophrenia, unspecified; F12.90 Cannabis use, unspecified, uncomplicated; F15.90 Other stimulant use, unspecified, uncomplicated; F17.210 Nicotine dependence, cigarettes, uncomplicated; Z88.5 Allergy status to narcotic agent; Z59.0 Homelessness
CPT/HCPCS: 36415; 80053; 83690; 85025; 99284; 99406; Q0162

== ENCOUNTER 2018-11-26 01:44 | Emergency (ER) | payer MEDICAID ==
[~2018-11-26] VITALS: Ht 185.4 cm; Wt 90.9 kg
[2018-11-26] MEDS ORDERED: SODIUM CHLORIDE 0.9% 1,000 ML IV ONE (02:00)
[2018-11-26] MEDS ORDERED: ONDANSETRON HCL 4 MG/2 ML VIAL IVP ONE (02:00)
[2018-11-26] MEDS ORDERED: PB/HYOSCY/ATR/SCOP/LIDO/MAALOX 55 ML BOTTLE PO ONE (02:00)
[2018-11-26] MEDS ORDERED: FAMOTIDINE 10 MG/ML 2 ML VIAL IVP ONE (02:00)
[2018-11-26 05:22] LABS: BASOPHILS % (AUTO) 0.5 % (0.0-2.0); EOSINOPHILS % (AUTO) 1.4 % (1.0-6.0); HEMATOCRIT 34.7 % (41-53); HEMOGLOBIN 11.7 g/dL (13.5-17.5); LYMPHOCYTES # (AUTO) 2.2 K/uL (1.0-4.8); LYMPHOCYTES % (AUTO) 32.9 % (22.0-44.0); MEAN CORPUSCULAR HEMOGLOBIN 28.7 pg (26.0-34.0); MEAN CORPUSCULAR HGB CONC 33.8 G/dL (31.0-37.0); MEAN CORPUSCULAR VOLUME 85 fL (80-100); MONOCYTES # (AUTO) 0.7 K/uL (0.1-1.0); NEUTROPHILS # (AUTO) 3.6 K/uL (1.8-7.7); NEUTROPHILS % (AUTO) 55.2 % (40.0-70.0); PLATELET COUNT (AUTO) 226 K/uL (150-450); RED BLOOD CELL COUNT(AUTO) 4.08 MIL/uL (4.50-5.90); RED CELL DISTRIBUTION WIDTH 14.5 % (11.5-14.5)
[2018-11-26 05:29] LABS: ANION GAP 9 mmol/L (8-16); CALCIUM, TOTAL 8.1 mg/dL (8.8-10.5); CARBON DIOXIDE 28 mmol/L (22-29); CHLORIDE 105 mmol/L (98-107); CREATININE 0.94 mg/dL (0.60-1.30); GLOMERULAR FILTR. RATE CALC > 60 mL/min (>60); GLUCOSE,RANDOM 84 mg/dL (70-110); POTASSIUM 3.4 mmol/L (3.5-5.1); SODIUM SERUM 142 mmol/L (136-145); UREA NITROGEN, BLOOD 7 mg/dL (7-18)
[2018-11-26 05:56] LABS: ALANINE AMINOTRANSFERASE 44 U/L (12-78); ALBUMIN 3.6 g/dL (3.4-5.0); ALKALINE PHOSPHATASE 53 U/L (46-116); ASPARTATE AMINOTRANSFERASE 35 U/L (15-37); BILIRUBIN,TOTAL 0.8 mg/dL (0.1-1.0); CREATINE KINASE, TOTAL ONLY 316 U/L (39-308); LIPASE 117 U/L (73-393); TOTAL PROTEIN, SERUM 6.4 g/dL (6.4-8.2)
[2018-11-26 06:00] VITALS: BP 137/80
== END 2018-11-26 07:08 | disposition home or self-care (01) ==
LOC: EMS 01:45
DX: K21.9 Gastro-esophageal reflux disease without esophagitis (principal); R11.2 Nausea with vomiting, unspecified; F10.20 Alcohol dependence, uncomplicated; F20.9 Schizophrenia, unspecified; F31.9 Bipolar disorder, unspecified; F17.210 Nicotine dependence, cigarettes, uncomplicated; F12.90 Cannabis use, unspecified, uncomplicated; F15.90 Other stimulant use, unspecified, uncomplicated; Z59.0 Homelessness; Z98.890 Other specified postprocedural states; Z88.5 Allergy status to narcotic agent
CPT/HCPCS: 36415; 80053; 82550; 83690; 83735; 84484; 85025; 93005; 96361; 96374; 96375; 99284; J2405; J3490; J7030

== ENCOUNTER 2019-01-19 06:05 | Emergency (ER) | payer MEDICAID ==
[~2019-01-19] VITALS: Ht 185.4 cm; Wt 95.5 kg
[2019-01-19] MEDS ORDERED: QUET50TA PO (06:17)
[2019-01-19] MEDS ORDERED: MIRT30 PO (06:17)
[2019-01-19] MEDS ORDERED: PB/HYOSCY/ATR/SCOP/LIDO/MAALOX 55 ML BOTTLE PO ONE (06:30)
[2019-01-19 06:50] LABS: BASOPHILS % (AUTO) 0.3 % (0.0-2.0); EOSINOPHILS % (AUTO) 0.5 % (1.0-6.0); HEMATOCRIT 39.7 % (41-53); HEMOGLOBIN 13.4 g/dL (13.5-17.5); LYMPHOCYTES # (AUTO) 1.6 K/uL (1.0-4.8); LYMPHOCYTES % (AUTO) 19.2 % (22.0-44.0); MEAN CORPUSCULAR HEMOGLOBIN 29.1 pg (26.0-34.0); MEAN CORPUSCULAR HGB CONC 33.6 G/dL (31.0-37.0); MEAN CORPUSCULAR VOLUME 87 fL (80-100); MONOCYTES # (AUTO) 0.7 K/uL (0.1-1.0); MONOCYTES % (AUTO) 8.7 % (2.0-9.0); NEUTROPHILS % (AUTO) 71.3 % (40.0-70.0); PLATELET COUNT (AUTO) 258 K/uL (150-450); RED CELL DISTRIBUTION WIDTH 13.8 % (11.5-14.5)
[2019-01-19 06:57] LABS: ANION GAP 11 mmol/L (8-16); CALCIUM, TOTAL 9.2 mg/dL (8.8-10.5); CARBON DIOXIDE 28 mmol/L (22-29); CHLORIDE 102 mmol/L (98-107); CREATININE 1.07 mg/dL (0.60-1.30); GLOMERULAR FILTR. RATE CALC > 60 mL/min (>60); GLUCOSE,RANDOM 78 mg/dL (70-110); POTASSIUM 3.6 mmol/L (3.5-5.1); SODIUM SERUM 141 mmol/L (136-145); UREA NITROGEN, BLOOD 10 mg/dL (7-18)
[2019-01-19 07:03] LABS: ALANINE AMINOTRANSFERASE 35 U/L (12-78); ALBUMIN 4.3 g/dL (3.4-5.0); ALKALINE PHOSPHATASE 55 U/L (46-116); ASPARTATE AMINOTRANSFERASE 23 U/L (15-37); BILIRUBIN,TOTAL 0.8 mg/dL (0.1-1.0); LIPASE 175 U/L (73-393); TOTAL PROTEIN, SERUM 8.1 g/dL (6.4-8.2)
[2019-01-19 08:22] VITALS: BP 125/76
[2019-01-19] MEDS ORDERED: MIRTAZAPINE 30 MG TABLET PO ONE (08:30)
== END 2019-01-19 08:37 | disposition home or self-care (01) ==
LOC: EMS 06:05
DX: R10.13 Epigastric pain (principal); F32.9 Major depressive disorder, single episode, unspecified; R11.2 Nausea with vomiting, unspecified; K21.9 Gastro-esophageal reflux disease without esophagitis; F20.9 Schizophrenia, unspecified; F17.210 Nicotine dependence, cigarettes, uncomplicated; F10.20 Alcohol dependence, uncomplicated; F12.90 Cannabis use, unspecified, uncomplicated; F15.90 Other stimulant use, unspecified, uncomplicated; Z59.0 Homelessness; Z79.899 Other long term (current) drug therapy; Z98.890 Other specified postprocedural states; Z88.5 Allergy status to narcotic agent
CPT/HCPCS: 36415; 80053; 83690; 85025; 99283; 99406; G0480

== ENCOUNTER 2019-01-29 19:20 | Inpatient (IN) | payer MEDICAID ==
[~2019-01-29] VITALS: Ht 185.4 cm; Wt 89.4 kg
[~2019-01-29 19:20] MED LIST changes: -ALBU8HFA IH; -CHOL100034 PO; -DIVA250T4 PO; +MIRT30 PO; +QUET50TA PO; -RISP2 PO
[2019-01-29 21:14] LABS: BASOPHILS % (AUTO) 0.8 % (0.0-2.0); EOSINOPHILS % (AUTO) 2.6 % (1.0-6.0); HEMATOCRIT 39.9 % (41-53); HEMOGLOBIN 13.4 g/dL (13.5-17.5); LYMPHOCYTES # (AUTO) 3.4 K/uL (1.0-4.8); LYMPHOCYTES % (AUTO) 44.5 % (22.0-44.0); MEAN CORPUSCULAR HEMOGLOBIN 29.1 pg (26.0-34.0); MEAN CORPUSCULAR HGB CONC 33.6 G/dL (31.0-37.0); MEAN CORPUSCULAR VOLUME 87 fL (80-100); MONOCYTES # (AUTO) 0.6 K/uL (0.1-1.0); MONOCYTES % (AUTO) 8.6 % (2.0-9.0); NEUTROPHILS # (AUTO) 3.3 K/uL (1.8-7.7); NEUTROPHILS % (AUTO) 43.5 % (40.0-70.0); PLATELET COUNT (AUTO) 285 K/uL (150-450); RED BLOOD CELL COUNT(AUTO) 4.61 MIL/uL (4.50-5.90); RED CELL DISTRIBUTION WIDTH 13.3 % (11.5-14.5)
[2019-01-29 21:28] LABS: ANION GAP 11 mmol/L (8-16); CALCIUM, TOTAL 8.9 mg/dL (8.8-10.5); CARBON DIOXIDE 26 mmol/L (22-29); CHLORIDE 101 mmol/L (98-107); CREATININE 1.02 mg/dL (0.60-1.30); GLOMERULAR FILTR. RATE CALC > 60 mL/min (>60); GLUCOSE,RANDOM 76 mg/dL (70-110); POTASSIUM 3.1 mmol/L (3.5-5.1); SODIUM SERUM 138 mmol/L (136-145); UREA NITROGEN, BLOOD 7 mg/dL (7-18)
[2019-01-29] MEDS ORDERED: DICYCLOMINE HCL 20 MG TABLET PO ONE (21:30)
[2019-01-29 21:34] LABS: ALANINE AMINOTRANSFERASE 31 U/L (12-78); ALBUMIN 4.2 g/dL (3.4-5.0); ALKALINE PHOSPHATASE 58 U/L (46-116); BILIRUBIN,TOTAL 0.6 mg/dL (0.1-1.0); TOTAL PROTEIN, SERUM 7.8 g/dL (6.4-8.2)
[2019-01-29 21:50] LABS: ASPARTATE AMINOTRANSFERASE 53 U/L (15-37)
[2019-01-29] MEDS ORDERED: HALOPERIDOL 5 MG TABLET PO PRN (22:00)
[2019-01-29] MEDS ORDERED: LORazepam 2 MG TABLET PO PRN (22:00)
[2019-01-29] MEDS ORDERED: ZOLPIDEM TARTRATE 10 MG TABLET PO PRN (22:00)
[2019-01-29 22:16] LABS: LIPASE 127 U/L (73-393)
[2019-01-30 03:22] LABS: CHOL/HDL RATIO 2.8 (4.2-7.3); CHOLESTEROL 165 mg/dL (131-200); HDL CHOLESTEROL 60 mg/dL (40-60); LDL CHOL (CALC.) 80 mg/dL (0-130); TRIGLYCERIDES 125 mg/dL (15-150)
[2019-01-30] MEDS ORDERED: POTASSIUM CHLORIDE 20 MEQ ER TABLET PO ONE (10:30)
[2019-01-30] MEDS ORDERED: ONDANSETRON HCL 4 MG TABLET PO PRN (10:30)
[2019-01-30] MEDS ORDERED: PETROLATUM,WHITE 28 GM JELLY TP PRN (10:30)
[2019-01-30] MEDS ORDERED: NICOTINE 14 MG/24 HOUR PATCH TD PRN (10:30)
[2019-01-30] MEDS ORDERED: LOPERAMIDE HCL 2 MG CAPSULE PO PRN (10:30)
[2019-01-30] MEDS ORDERED: GuaiFENesin/D-METHORPHAN [SUGAR-FREE] 200-20MG/10 ML SYRUP UDCUP PO PRN (10:30)
[2019-01-30] MEDS ORDERED: ALBUTEROL SULFATE HFA 90 MCG/PUFF 8 GM INHALER IH PRN (10:30)
[2019-01-30] MEDS ORDERED: CloNIDine HCL 0.1 MG TABLET PO PRN (10:30)
[2019-01-30] MEDS ORDERED: MAGNESIUM HYDROXIDE SUSPENSION 30 ML UDCUP PO PRN (10:30)
[2019-01-30] MEDS ORDERED: DOCUSATE SODIUM 100 MG CAPSULE PO PRN (10:30)
[2019-01-30] MEDS ORDERED: ACETAMINOPHEN 325 MG TABLET PO PRN (10:30)
[2019-01-30] MEDS ORDERED: IBUPROFEN 400 MG TABLET PO PRN (10:30)
[2019-01-30] MEDS ORDERED: MAG HYDROX/AL HYDROX/SIMETH ES 30 ML SUSPENSION UDCUP PO PRN (10:30)
[2019-01-30 11:55] VITALS: BP 113/72
[2019-01-30] MEDS ORDERED: PNEUMOCOCCAL VACCINE POLYVALENT 0.5 ML VIAL [PPSV23] IM ONE (12:00)
[2019-01-30] MEDS ORDERED: INFLUENZA VIRUS VACCINE QVS 2019-20 (3YR+)/PF 60 MCG/0.5 ML SYRINGE IM ONE (12:00)
[2019-01-30 16:10] VITALS: BP 116/66
[2019-01-30] MEDS: MIRTAZAPINE 30 MG TABLET PO SCH (21:15)
[2019-01-30] MEDS: QUEtiapine FUMARATE 100 MG TABLET PO SCH (21:16)
[2019-01-31 02:42] VITALS: BP 102/63
[2019-01-31 08:25] VITALS: BP 109/70
[2019-01-31 16:09] VITALS: BP 107/62
[2019-01-31] MEDS: MIRTAZAPINE 30 MG TABLET PO SCH (20:19)
[2019-01-31] MEDS: QUEtiapine FUMARATE 100 MG TABLET PO SCH (20:20)
[2019-02-01 00:34] VITALS: BP 105/62
[2019-02-01 08:17] VITALS: BP 127/70
[2019-02-01 16:29] VITALS: BP 122/82
[2019-02-01] MEDS: QUEtiapine FUMARATE 100 MG TABLET PO SCH (20:03)
[2019-02-01] MEDS: MIRTAZAPINE 30 MG TABLET PO SCH (20:03)
[2019-02-02 08:12] VITALS: BP 115/75
[2019-02-02 16:05] VITALS: BP 132/78
[2019-02-02] MEDS: QUEtiapine FUMARATE 100 MG TABLET PO SCH (20:03)
[2019-02-02] MEDS: MIRTAZAPINE 30 MG TABLET PO SCH (20:03)
[2019-02-03 00:28] VITALS: BP 129/72
[2019-02-03 08:40] VITALS: BP 113/65
[2019-02-03 16:14] VITALS: BP 133/91
== END 2019-02-03 17:25 | disposition home or self-care (01) | DRG 750 ==
LOC: EMS 19:25 → B2S 01-30 08:26
PROVIDERS: ADMIT Psychiatry & Neurology Child & Adolescent Psychiatry; ATTEND Psychiatry & Neurology Child & Adolescent Psychiatry
DX: F25.1 Schizoaffective disorder, depressive type (principal); R45.851 Suicidal ideations; R74.0 Nonspecific elevation of levels of transaminase and lactic acid dehydrogenase [LDH]; D64.9 Anemia, unspecified; E87.6 Hypokalemia; F12.10 Cannabis abuse, uncomplicated; K21.9 Gastro-esophageal reflux disease without esophagitis; F17.210 Nicotine dependence, cigarettes, uncomplicated; F10.20 Alcohol dependence, uncomplicated; Z59.0 Homelessness; Z28.21 Immunization not carried out because of patient refusal; Z88.5 Allergy status to narcotic agent; Z79.899 Other long term (current) drug therapy
CPT/HCPCS: G0480

== ENCOUNTER 2019-05-16 12:00 | Inpatient (IN) | payer MEDICAID ==
[~2019-05-16] VITALS: Ht 185.4 cm; Wt 100.7 kg
[~2019-05-16 12:00] MED LIST changes: +QUET25TA PO
[2019-05-16] MEDS ORDERED: HALOPERIDOL LACTATE 5 MG/ML VIAL IM ONE (15:15)
[2019-05-16] MEDS ORDERED: LORazepam 2 MG/ML VIAL IM ONE (15:15)
[2019-05-16] MEDS ORDERED: DiphenhydrAMINE HCL 50 MG/ML VIAL IM ONE (15:15)
[2019-05-16] MEDS ORDERED: ZOLPIDEM TARTRATE 10 MG TABLET PO PRN (16:30)
[2019-05-16] MEDS ORDERED: LORazepam 2 MG TABLET PO PRN (16:30)
[2019-05-16] MEDS ORDERED: HALOPERIDOL 5 MG TABLET PO PRN (16:30)
[2019-05-16] MEDS ORDERED: INFLUENZA VIRUS VACCINE QVS 2019-20 (3YR+)/PF 60 MCG/0.5 ML SYRINGE IM ONE (19:00)
[2019-05-17 05:30] VITALS: BP 107/61
[2019-05-17] MEDS ORDERED: GuaiFENesin/D-METHORPHAN [SUGAR-FREE] 200-20MG/10 ML SYRUP UDCUP PO PRN (07:45)
[2019-05-17] MEDS ORDERED: LOPERAMIDE HCL 2 MG CAPSULE PO PRN (07:45)
[2019-05-17] MEDS ORDERED: DOCUSATE SODIUM 100 MG CAPSULE PO PRN (07:45)
[2019-05-17] MEDS ORDERED: IBUPROFEN 400 MG TABLET PO PRN (07:45)
[2019-05-17] MEDS ORDERED: ONDANSETRON HCL 4 MG TABLET PO PRN (07:45)
[2019-05-17] MEDS ORDERED: MAGNESIUM HYDROXIDE SUSPENSION 30 ML UDCUP PO PRN (07:45)
[2019-05-17] MEDS ORDERED: ACETAMINOPHEN 325 MG TABLET PO PRN (07:45)
[2019-05-17] MEDS ORDERED: PETROLATUM,WHITE 28 GM JELLY TP PRN (07:45)
[2019-05-17] MEDS ORDERED: CloNIDine HCL 0.1 MG TABLET PO PRN (07:45)
[2019-05-17] MEDS ORDERED: ALBUTEROL SULFATE HFA 90 MCG/PUFF 8 GM INHALER IH PRN (07:45)
[2019-05-17] MEDS ORDERED: NICOTINE 14 MG/24 HOUR PATCH TD PRN (07:45)
[2019-05-17 08:18] VITALS: BP 138/88
[2019-05-17 16:05] VITALS: BP 114/66
[2019-05-17] MEDS: QUEtiapine FUMARATE 25 MG TABLET PO SCH (20:53)
[2019-05-17] MEDS: MIRTAZAPINE 30 MG TABLET PO SCH (20:53)
[2019-05-18 06:35] VITALS: BP 118/72
[2019-05-18 08:31] VITALS: BP 122/61
[2019-05-18] MEDS: QUEtiapine FUMARATE 25 MG TABLET PO SCH ×2 (08:44→20:31)
[2019-05-18 16:00] VITALS: BP 116/65
[2019-05-18] MEDS: MIRTAZAPINE 30 MG TABLET PO SCH (20:31)
[2019-05-19 03:45] VITALS: BP 127/71
[2019-05-19] MEDS: QUEtiapine FUMARATE 25 MG TABLET PO SCH ×2 (09:00→20:10)
[2019-05-19 10:09] VITALS: BP 133/83
[2019-05-19] MEDS: MIRTAZAPINE 30 MG TABLET PO SCH (20:10)
[2019-05-19 21:52] VITALS: BP 136/78
[2019-05-20 05:49] VITALS: BP 128/82
[2019-05-20 08:43] VITALS: BP 121/76
[2019-05-20] MEDS: QUEtiapine FUMARATE 25 MG TABLET PO SCH ×2 (09:27→20:05)
[2019-05-20 16:29] VITALS: BP 127/81
[2019-05-20] MEDS: MIRTAZAPINE 30 MG TABLET PO SCH (20:05)
[2019-05-21 05:34] VITALS: BP 132/80
[2019-05-21 08:11] VITALS: BP 122/78
[2019-05-21] MEDS: QUEtiapine FUMARATE 25 MG TABLET PO SCH ×2 (09:10→20:02)
[2019-05-21 16:26] VITALS: BP 112/72
[2019-05-21] MEDS: MIRTAZAPINE 30 MG TABLET PO SCH (20:02)
[2019-05-22 06:05] VITALS: BP 97/65
[2019-05-22 08:48] VITALS: BP 122/75
[2019-05-22] MEDS: QUEtiapine FUMARATE 25 MG TABLET PO SCH ×2 (09:31→20:14)
[2019-05-22 16:25] VITALS: BP 112/65
[2019-05-22] MEDS: MIRTAZAPINE 30 MG TABLET PO SCH (20:14)
[2019-05-23] MEDS: MAG HYDROX/AL HYDROX/SIMETH ES 30 ML SUSPENSION UDCUP PO PRN ×2 (00:26→21:43)
[2019-05-23 01:20] VITALS: BP 122/82
[2019-05-23 08:10] VITALS: BP 118/73
[2019-05-23] MEDS: QUEtiapine FUMARATE 25 MG TABLET PO SCH ×2 (08:53→20:20)
[2019-05-23 16:11] VITALS: BP 133/78
[2019-05-23] MEDS ORDERED: MIRT30 PO (18:41)
[2019-05-23] MEDS: MIRTAZAPINE 30 MG TABLET PO SCH (20:20)
[2019-05-24 05:26] VITALS: BP 115/72
[2019-05-24 08:43] VITALS: BP 116/57
== END 2019-05-24 08:15 | disposition home or self-care (01) | DRG 750 ==
LOC: EMS 12:07 → B3A 16:51 → UNDOADMIN 17:13 → B3A 17:13 → B2S 05-19 12:35
PROVIDERS: ADMIT Psychiatry & Neurology Child & Adolescent Psychiatry; ATTEND Psychiatry & Neurology Child & Adolescent Psychiatry
DX: F25.1 Schizoaffective disorder, depressive type (principal); R45.851 Suicidal ideations; Z59.0 Homelessness; F31.9 Bipolar disorder, unspecified; K21.9 Gastro-esophageal reflux disease without esophagitis; F17.200 Nicotine dependence, unspecified, uncomplicated; F12.90 Cannabis use, unspecified, uncomplicated; F19.10 Other psychoactive substance abuse, uncomplicated; Z87.11 Personal history of peptic ulcer disease; Z91.14 Patient's other noncompliance with medication regimen; Z88.5 Allergy status to narcotic agent
CPT/HCPCS: J1200; J1630; J2060

== ENCOUNTER 2019-07-31 15:07 | Inpatient (IN) | payer MEDICAID ==
[~2019-07-31] VITALS: Ht 185.4 cm; Wt 103.4 kg
[2019-07-31 19:51] VITALS: BP 149/79
[2019-07-31] MEDS ORDERED: ACETAMINOPHEN 325 MG TABLET PO PRN (20:45)
[2019-07-31] MEDS ORDERED: HydrOXYzine PAMOATE 50 MG CAPSULE PO PRN (20:45)
[2019-07-31] MEDS ORDERED: OLANZapine 5 MG RAPDIS TABLET PO PRN (20:45)
[2019-07-31] MEDS ORDERED: LORazepam 2 MG TABLET PO PRN (20:45)
[2019-07-31] MEDS ORDERED: MAGNESIUM HYDROXIDE SUSPENSION 30 ML UDCUP PO PRN (20:45)
[2019-07-31] MEDS ORDERED: TUBERCULIN, PURIFIED PROTEIN DERIVATIVE 5 TU/0.1 ML SYRINGE ID ONE (20:45)
[2019-07-31] MEDS ORDERED: PROMETHAZINE HCL 25 MG TABLET PO PRN (20:45)
[2019-07-31] MEDS ORDERED: GuaiFENesin/D-METHORPHAN [SUGAR-FREE] 200-20MG/10 ML SYRUP UDCUP PO PRN (20:45)
[2019-07-31] MEDS ORDERED: LOPERAMIDE HCL 2 MG CAPSULE PO PRN (20:45)
[2019-07-31] MEDS ORDERED: ZOLPIDEM TARTRATE 10 MG TABLET PO PRN (20:45)
[2019-07-31] MEDS ORDERED: OLANZapine 5 MG RAPDIS TABLET PO SCH (21:00)
[2019-07-31] MEDS: THIAMINE 100 MG TABLET PO SCH (21:36)
[2019-08-01 01:16] VITALS: BP 128/81
[2019-08-01 06:53] VITALS: BP 117/78
[2019-08-01 08:08] LABS: EOSINOPHILS % (AUTO) 6.9 % (1.0-6.0); HEMATOCRIT 37.8 % (41-53); HEMOGLOBIN 12.8 g/dL (13.5-17.5); LYMPHOCYTES # (AUTO) 2.3 K/uL (1.0-4.8); LYMPHOCYTES % (AUTO) 48.3 % (22.0-44.0); MEAN CORPUSCULAR HEMOGLOBIN 28.9 pg (26.0-34.0); MEAN CORPUSCULAR HGB CONC 33.7 G/dL (31.0-37.0); MEAN CORPUSCULAR VOLUME 86 fL (80-100); MONOCYTES # (AUTO) 0.3 K/uL (0.1-1.0); MONOCYTES % (AUTO) 7.2 % (2.0-9.0); NEUTROPHILS # (AUTO) 1.7 K/uL (1.8-7.7); NEUTROPHILS % (AUTO) 36.6 % (40.0-70.0); PLATELET COUNT (AUTO) 202 K/uL (150-450); RED BLOOD CELL COUNT(AUTO) 4.42 MIL/uL (4.50-5.90); RED CELL DISTRIBUTION WIDTH 12.8 % (11.5-14.5)
[2019-08-01 08:22] VITALS: BP 118/58
[2019-08-01 08:27] LABS: HEMOGLOBIN A1C 5.6 % (3.8-5.6)
[2019-08-01 08:49] LABS: ALANINE AMINOTRANSFERASE 58 U/L (12-78); ALBUMIN 3.4 g/dL (3.4-5.0); ALKALINE PHOSPHATASE 47 U/L (46-116); ANION GAP 7 mmol/L (8-16); ASPARTATE AMINOTRANSFERASE 26 U/L (15-37); BILIRUBIN,TOTAL 0.5 mg/dL (0.1-1.0); CALCIUM, TOTAL 8.6 mg/dL (8.8-10.5); CARBON DIOXIDE 29 mmol/L (22-29); CHLORIDE 106 mmol/L (98-107); CHOL/HDL RATIO 3.3 (4.2-7.3); CHOLESTEROL 154 mg/dL (131-200); CREATININE 0.88 mg/dL (0.60-1.30); FREE T4 (FREE THYROXINE) 0.92 ng/dL (0.76-1.46); GLOMERULAR FILTR. RATE CALC > 60 mL/min (>60); GLUCOSE,RANDOM 99 mg/dL (70-110); HDL CHOLESTEROL 46 mg/dL (40-60); LDL CHOL (CALC.) 97 mg/dL (0-130); POTASSIUM 3.3 mmol/L (3.5-5.1); SODIUM SERUM 142 mmol/L (136-145); THYROID STIMULATING HORMONE 1.14 uIU/mL (0.36-3.74); TOTAL PROTEIN, SERUM 6.6 g/dL (6.4-8.2); TRIGLYCERIDES 54 mg/dL (15-150); UREA NITROGEN, BLOOD 10 mg/dL (7-18)
[2019-08-01] MEDS ORDERED: FLUoxetine HCL 20 MG CAPSULE PO SCH (09:00)
[2019-08-01] MEDS: MULTIVITAMINS WITH MINERALS, THERAPEUTIC TABLET PO SCH (09:26)
[2019-08-01] MEDS: FOLIC ACID 1 MG TABLET PO SCH (09:26)
[2019-08-01] MEDS: THIAMINE 100 MG TABLET PO SCH ×2 (09:26→16:33)
[2019-08-01] MEDS: NALTREXONE HCL 50 MG TABLET PO SCH (09:27)
[2019-08-01] MEDS ORDERED: POTASSIUM CHLORIDE 20 MEQ ER TABLET PO ONE ×2 (13:45→21:00)
[2019-08-01] MEDS ORDERED: QUEtiapine FUMARATE 100 MG TABLET PO PRN (15:30)
[2019-08-01 16:30] VITALS: BP 127/67
[2019-08-01] MEDS: MAG HYDROX/AL HYDROX/SIMETH ES 30 ML SUSPENSION UDCUP PO PRN (18:39)
[2019-08-01] MEDS: QUEtiapine FUMARATE 200 MG TABLET PO SCH (20:46)
[2019-08-01] MEDS ORDERED: MIRTAZAPINE 15 MG TABLET PO SCH (21:00)
[2019-08-02] MEDS: PANTOPRAZOLE SODIUM 40 MG DR TABLET PO SCH (09:25)
[2019-08-02] MEDS: FOLIC ACID 1 MG TABLET PO SCH (09:25)
[2019-08-02] MEDS: THIAMINE 100 MG TABLET PO SCH ×2 (09:25→16:30)
[2019-08-02] MEDS: NALTREXONE HCL 50 MG TABLET PO SCH (09:25)
[2019-08-02] MEDS: MULTIVITAMINS WITH MINERALS, THERAPEUTIC TABLET PO SCH (09:25)
[2019-08-02 14:26] VITALS: BP 106/56
[2019-08-02 16:07] VITALS: BP 120/78
[2019-08-02] MEDS: QUEtiapine FUMARATE 25 MG TABLET PO SCH (16:30)
[2019-08-02] MEDS: QUEtiapine FUMARATE 200 MG TABLET PO SCH (20:43)
[2019-08-02] MEDS: MAG HYDROX/AL HYDROX/SIMETH ES 30 ML SUSPENSION UDCUP PO PRN (20:47)
[2019-08-03 07:07] VITALS: BP 128/72
[2019-08-03 08:11] VITALS: BP 133/87
[2019-08-03] MEDS: QUEtiapine FUMARATE 25 MG TABLET PO SCH ×2 (08:15→12:33)
[2019-08-03] MEDS: FOLIC ACID 1 MG TABLET PO SCH (08:23)
[2019-08-03] MEDS: DULoxetine HCL 20 MG CAPSULE PO SCH (08:23)
[2019-08-03] MEDS: PANTOPRAZOLE SODIUM 40 MG DR TABLET PO SCH (08:23)
[2019-08-03] MEDS: NALTREXONE HCL 50 MG TABLET PO SCH (08:24)
[2019-08-03] MEDS: THIAMINE 100 MG TABLET PO SCH ×2 (08:24→16:30)
[2019-08-03] MEDS: MULTIVITAMINS WITH MINERALS, THERAPEUTIC TABLET PO SCH (08:24)
[2019-08-03 16:00] VITALS: BP 126/78
[2019-08-03] MEDS ORDERED: QUEtiapine FUMARATE 200 MG TABLET PO SCH (21:00)
[2019-08-04 08:10] VITALS: BP 122/73
[2019-08-04] MEDS: DULoxetine HCL 20 MG CAPSULE PO SCH ×2 (09:00→09:10)
[2019-08-04] MEDS: FOLIC ACID 1 MG TABLET PO SCH (09:10)
[2019-08-04] MEDS: MULTIVITAMINS WITH MINERALS, THERAPEUTIC TABLET PO SCH (09:10)
[2019-08-04] MEDS: PANTOPRAZOLE SODIUM 40 MG DR TABLET PO SCH (09:10)
[2019-08-04] MEDS: NALTREXONE HCL 50 MG TABLET PO SCH (09:10)
[2019-08-04] MEDS: THIAMINE 100 MG TABLET PO SCH (09:11)
[2019-08-04] MEDS ORDERED: NALT50TA PO (14:24)
[2019-08-04] MEDS ORDERED: DULO20CA30 PO (14:24)
[2019-08-04] MEDS ORDERED: QUET200T29 PO (14:24)
== END 2019-08-04 16:10 | disposition home or self-care (01) | DRG 750 ==
LOC: B2S 19:37
PROVIDERS: ADMIT Psychiatry & Neurology Psychiatry; ATTEND Psychiatry & Neurology Psychiatry
DX: F25.0 Schizoaffective disorder, bipolar type (principal); Z59.0 Homelessness; E66.9 Obesity, unspecified; F17.200 Nicotine dependence, unspecified, uncomplicated; K21.9 Gastro-esophageal reflux disease without esophagitis; Z91.19 Patient's noncompliance with other medical treatment and regimen; Z59.9 Problem related to housing and economic circumstances, unspecified; Z65.3 Problems related to other legal circumstances; Z68.30 Body mass index [BMI] 30.0-30.9, adult; Z87.11 Personal history of peptic ulcer disease; Z79.899 Other long term (current) drug therapy
CPT/HCPCS: 83036; 84439; 84443; 86592; 87081

== ENCOUNTER 2019-08-29 19:09 | Inpatient (IN) | payer MEDICAID ==
[~2019-08-29] VITALS: Ht 185.4 cm; Wt 99.8 kg
[~2019-08-29 19:09] MED LIST changes: +DULO20CA30 PO; -MIRT30 PO; +NALT50TA PO; +QUET200T29 PO; -QUET25TA PO; -QUET50TA PO
[2019-08-29] MEDS ORDERED: ACETAMINOPHEN 325 MG TABLET PO PRN (20:45)
[2019-08-29] MEDS ORDERED: MAGNESIUM HYDROXIDE SUSPENSION 30 ML UDCUP PO PRN (20:45)
[2019-08-29] MEDS ORDERED: HydrOXYzine PAMOATE 50 MG CAPSULE PO PRN (20:45)
[2019-08-29] MEDS ORDERED: PALIPERIDONE 1.5 MG ER TABLET PO PRN (20:45)
[2019-08-29] MEDS ORDERED: GuaiFENesin/D-METHORPHAN [SUGAR-FREE] 200-20MG/10 ML SYRUP UDCUP PO PRN (20:45)
[2019-08-29] MEDS ORDERED: ZOLPIDEM TARTRATE 10 MG TABLET PO PRN (20:45)
[2019-08-29] MEDS ORDERED: PROMETHAZINE HCL 25 MG TABLET PO PRN (20:45)
[2019-08-29] MEDS ORDERED: LOPERAMIDE HCL 2 MG CAPSULE PO PRN (20:45)
[2019-08-29] MEDS ORDERED: LORazepam 2 MG TABLET PO PRN (20:45)
[2019-08-29 20:49] VITALS: BP 120/79
[2019-08-29] MEDS ORDERED: PALIPERIDONE 3 MG ER TABLET PO SCH (21:00)
[2019-08-29] MEDS ORDERED: PALIPERIDONE PALMITATE 234 MG/1.5 ML SYRINGE IM ONE (21:30)
[2019-08-30 06:31] VITALS: BP 118/67
[2019-08-30 07:55] LABS: BASOPHILS % (AUTO) 0.5 % (0.0-2.0); EOSINOPHILS % (AUTO) 5.5 % (1.0-6.0); LYMPHOCYTES # (AUTO) 1.9 K/uL (1.0-4.8); LYMPHOCYTES % (AUTO) 47.2 % (22.0-44.0); MEAN CORPUSCULAR HGB CONC 33.3 G/dL (31.0-37.0); MEAN CORPUSCULAR VOLUME 87 fL (80-100); MONOCYTES # (AUTO) 0.4 K/uL (0.1-1.0); MONOCYTES % (AUTO) 10.1 % (2.0-9.0); NEUTROPHILS # (AUTO) 1.5 K/uL (1.8-7.7); NEUTROPHILS % (AUTO) 36.7 % (40.0-70.0); PLATELET COUNT (AUTO) 211 K/uL (150-450); RED BLOOD CELL COUNT(AUTO) 4.48 MIL/uL (4.50-5.90); RED CELL DISTRIBUTION WIDTH 14.7 % (11.5-14.5)
[2019-08-30 08:11] LABS: HEMOGLOBIN A1C 5.2 % (3.8-5.6)
[2019-08-30 08:14] LABS: ALANINE AMINOTRANSFERASE 53 U/L (12-78); ALBUMIN 3.2 g/dL (3.4-5.0); ALKALINE PHOSPHATASE 46 U/L (46-116); ANION GAP 5 mmol/L (8-16); ASPARTATE AMINOTRANSFERASE 34 U/L (15-37); BILIRUBIN,TOTAL 0.5 mg/dL (0.1-1.0); CALCIUM, TOTAL 8.5 mg/dL (8.8-10.5); CARBON DIOXIDE 31 mmol/L (22-29); CHLORIDE 107 mmol/L (98-107); CHOL/HDL RATIO 2.3 (4.2-7.3); CHOLESTEROL 136 mg/dL (131-200); CREATININE 0.88 mg/dL (0.60-1.30); GLOMERULAR FILTR. RATE CALC > 60 mL/min (>60); GLUCOSE,RANDOM 93 mg/dL (70-110); HDL CHOLESTEROL 59 mg/dL (40-60); LDL CHOL (CALC.) 65 mg/dL (0-130); POTASSIUM 3.6 mmol/L (3.5-5.1); SODIUM SERUM 143 mmol/L (136-145); TOTAL PROTEIN, SERUM 6.5 g/dL (6.4-8.2); TRIGLYCERIDES 61 mg/dL (15-150); UREA NITROGEN, BLOOD 7 mg/dL (7-18)
[2019-08-30] MEDS: THIAMINE 100 MG TABLET PO SCH ×2 (08:57→16:33)
[2019-08-30] MEDS: MULTIVITAMINS WITH MINERALS, THERAPEUTIC TABLET PO SCH (08:58)
[2019-08-30] MEDS: FOLIC ACID 1 MG TABLET PO SCH (08:58)
[2019-08-30] MEDS: NALTREXONE HCL 50 MG TABLET PO SCH (08:58)
[2019-08-30] MEDS ORDERED: DULoxetine HCL 20 MG CAPSULE PO SCH (09:00)
[2019-08-30] MEDS ORDERED: QUEtiapine FUMARATE 100 MG TABLET PO PRN (15:00)
[2019-08-30] MEDS ORDERED: QUEtiapine FUMARATE 200 MG TABLET PO SCH (21:00)
[2019-08-30] MEDS: MIRTAZAPINE 30 MG TABLET PO SCH (21:00)
[2019-08-31 05:18] VITALS: BP 106/68
[2019-08-31 08:00] VITALS: BP 125/64
[2019-08-31] MEDS: NALTREXONE HCL 50 MG TABLET PO SCH (09:14)
[2019-08-31] MEDS: FOLIC ACID 1 MG TABLET PO SCH (09:14)
[2019-08-31] MEDS: MULTIVITAMINS WITH MINERALS, THERAPEUTIC TABLET PO SCH (09:14)
[2019-08-31] MEDS: THIAMINE 100 MG TABLET PO SCH ×2 (09:14→16:37)
[2019-08-31 13:10] VITALS: BP 125/64
[2019-08-31 16:07] VITALS: BP 112/60
[2019-08-31] MEDS: MIRTAZAPINE 30 MG TABLET PO SCH (20:27)
[2019-08-31] MEDS ORDERED: QUEtiapine FUMARATE 200 MG TABLET PO SCH (21:00)
[2019-09-01 08:16] VITALS: BP 127/77
[2019-09-01] MEDS: MULTIVITAMINS WITH MINERALS, THERAPEUTIC TABLET PO SCH (08:58)
[2019-09-01] MEDS: NALTREXONE HCL 50 MG TABLET PO SCH (08:58)
[2019-09-01] MEDS: THIAMINE 100 MG TABLET PO SCH ×2 (08:58→16:22)
[2019-09-01] MEDS: FOLIC ACID 1 MG TABLET PO SCH (08:58)
[2019-09-01 16:06] VITALS: BP 113/66
[2019-09-01] MEDS: MIRTAZAPINE 30 MG TABLET PO SCH (20:47)
[2019-09-01] MEDS: QUEtiapine FUMARATE 200 MG TABLET PO SCH (20:48)
[2019-09-02] MEDS: FOLIC ACID 1 MG TABLET PO SCH (08:32)
[2019-09-02] MEDS: THIAMINE 100 MG TABLET PO SCH ×2 (08:32→16:22)
[2019-09-02] MEDS: NALTREXONE HCL 50 MG TABLET PO SCH (08:32)
[2019-09-02] MEDS: MULTIVITAMINS WITH MINERALS, THERAPEUTIC TABLET PO SCH (08:32)
[2019-09-02] MEDS ORDERED: PALIPERIDONE PALMITATE 156 MG/ML SYRINGE IM ONE (09:00)
[2019-09-02 16:59] VITALS: BP 113/74
[2019-09-02] MEDS: MIRTAZAPINE 30 MG TABLET PO SCH (20:30)
[2019-09-02] MEDS: QUEtiapine FUMARATE 200 MG TABLET PO SCH (20:30)
[2019-09-02] MEDS: MAG HYDROX/AL HYDROX/SIMETH ES 30 ML SUSPENSION UDCUP PO PRN (23:04)
[2019-09-03] MEDS: THIAMINE 100 MG TABLET PO SCH ×2 (08:14→17:19)
[2019-09-03] MEDS: FOLIC ACID 1 MG TABLET PO SCH (08:14)
[2019-09-03] MEDS: MULTIVITAMINS WITH MINERALS, THERAPEUTIC TABLET PO SCH (08:14)
[2019-09-03] MEDS: NALTREXONE HCL 50 MG TABLET PO SCH (08:14)
[2019-09-03 08:35] VITALS: BP 121/50
[2019-09-03 16:06] VITALS: BP 106/66
[2019-09-03] MEDS: QUEtiapine FUMARATE 200 MG TABLET PO SCH (20:08)
[2019-09-03] MEDS: MIRTAZAPINE 30 MG TABLET PO SCH (20:08)
[2019-09-03] MEDS: MAG HYDROX/AL HYDROX/SIMETH ES 30 ML SUSPENSION UDCUP PO PRN (22:06)
[2019-09-04 00:08] VITALS: BP 118/62
[2019-09-04 07:54] LABS: BASOPHILS % (AUTO) 0.6 % (0.0-2.0); EOSINOPHILS % (AUTO) 4.2 % (1.0-6.0); HEMATOCRIT 39.8 % (41-53); HEMOGLOBIN 12.8 g/dL (13.5-17.5); LYMPHOCYTES # (AUTO) 2.8 K/uL (1.0-4.8); LYMPHOCYTES % (AUTO) 47.7 % (22.0-44.0); MEAN CORPUSCULAR HEMOGLOBIN 28.1 pg (26.0-34.0); MEAN CORPUSCULAR HGB CONC 32.1 G/dL (31.0-37.0); MEAN CORPUSCULAR VOLUME 87 fL (80-100); MONOCYTES # (AUTO) 0.6 K/uL (0.1-1.0); MONOCYTES % (AUTO) 9.5 % (2.0-9.0); NEUTROPHILS # (AUTO) 2.2 K/uL (1.8-7.7); PLATELET COUNT (AUTO) 225 K/uL (150-450); RED BLOOD CELL COUNT(AUTO) 4.55 MIL/uL (4.50-5.90); RED CELL DISTRIBUTION WIDTH 15.6 % (11.5-14.5)
[2019-09-04 08:10] LABS: ALANINE AMINOTRANSFERASE 109 U/L (12-78); ALBUMIN 3.4 g/dL (3.4-5.0); ALKALINE PHOSPHATASE 43 U/L (46-116); ANION GAP 3 mmol/L (8-16); ASPARTATE AMINOTRANSFERASE 40 U/L (15-37); BILIRUBIN,TOTAL 0.4 mg/dL (0.1-1.0); CALCIUM, TOTAL 8.4 mg/dL (8.8-10.5); CARBON DIOXIDE 32 mmol/L (22-29); CHLORIDE 108 mmol/L (98-107); CREATININE 0.88 mg/dL (0.60-1.30); GLOMERULAR FILTR. RATE CALC > 60 mL/min (>60); GLUCOSE,RANDOM 85 mg/dL (70-110); SODIUM SERUM 143 mmol/L (136-145); TOTAL PROTEIN, SERUM 6.8 g/dL (6.4-8.2); UREA NITROGEN, BLOOD 10 mg/dL (7-18)
[2019-09-04] MEDS: NALTREXONE HCL 50 MG TABLET PO SCH (09:13)
[2019-09-04] MEDS: MULTIVITAMINS WITH MINERALS, THERAPEUTIC TABLET PO SCH (09:13)
[2019-09-04] MEDS: THIAMINE 100 MG TABLET PO SCH (09:13)
[2019-09-04] MEDS: FOLIC ACID 1 MG TABLET PO SCH (09:13)
[2019-09-04] MEDS ORDERED: QUET200T29 PO (09:29)
[2019-09-04] MEDS ORDERED: NALT50TA PO (09:29)
[2019-09-04] MEDS ORDERED: MIRT30 PO (09:29)
== END 2019-09-04 13:16 | disposition home or self-care (01) | DRG 885 ==
LOC: B2S 19:31 → B3A 20:10
PROVIDERS: ADMIT Psychiatry & Neurology Psychiatry; ATTEND Psychiatry & Neurology Psychiatry
DX: F25.1 Schizoaffective disorder, depressive type (principal); K21.9 Gastro-esophageal reflux disease without esophagitis; R63.0 Anorexia; E66.9 Obesity, unspecified; F12.90 Cannabis use, unspecified, uncomplicated; D64.9 Anemia, unspecified; F17.200 Nicotine dependence, unspecified, uncomplicated; Z68.30 Body mass index [BMI] 30.0-30.9, adult; Z79.899 Other long term (current) drug therapy; Z87.11 Personal history of peptic ulcer disease; Z91.14 Patient's other noncompliance with medication regimen; Z91.19 Patient's noncompliance with other medical treatment and regimen; Z88.5 Allergy status to narcotic agent
CPT/HCPCS: 83036; 86592; 87081

== ENCOUNTER 2019-09-26 18:41 | Inpatient (IN) | payer MEDICAID ==
[~2019-09-26] VITALS: Ht 185.4 cm; Wt 102.1 kg
[~2019-09-26 18:41] MED LIST changes: -DULO20CA30 PO; +MIRT30 PO
[2019-09-26] MEDS ORDERED: MIRT30 PO (19:05)
[2019-09-26] MEDS ORDERED: NALT50TA6 PO (19:05)
[2019-09-26] MEDS ORDERED: QUET100T PO (19:05)
[2019-09-26] MEDS ORDERED: GuaiFENesin/D-METHORPHAN [SUGAR-FREE] 200-20MG/10 ML SYRUP UDCUP PO PRN (19:15)
[2019-09-26] MEDS ORDERED: PROMETHAZINE HCL 25 MG TABLET PO PRN (19:15)
[2019-09-26] MEDS ORDERED: MAGNESIUM HYDROXIDE SUSPENSION 30 ML UDCUP PO PRN (19:15)
[2019-09-26] MEDS ORDERED: ZOLPIDEM TARTRATE 10 MG TABLET PO PRN (19:15)
[2019-09-26] MEDS ORDERED: MAG HYDROX/AL HYDROX/SIMETH ES 30 ML SUSPENSION UDCUP PO PRN (19:15)
[2019-09-26] MEDS ORDERED: LOPERAMIDE HCL 2 MG CAPSULE PO PRN (19:15)
[2019-09-26] MEDS ORDERED: HydrOXYzine PAMOATE 50 MG CAPSULE PO PRN (19:15)
[2019-09-26] MEDS ORDERED: ACETAMINOPHEN 325 MG TABLET PO PRN (19:15)
[2019-09-26] MEDS ORDERED: PALIPERIDONE PALMITATE 234 MG/1.5 ML SYRINGE IM ONE (19:15)
[2019-09-26] MEDS ORDERED: QUEtiapine FUMARATE 100 MG TABLET PO PRN (19:15)
[2019-09-26] MEDS ORDERED: LORazepam 2 MG TABLET PO PRN (19:15)
[2019-09-26 19:34] VITALS: BP 109/71
[2019-09-26] MEDS: THIAMINE 100 MG TABLET PO SCH (19:58)
[2019-09-26] MEDS: MIRTAZAPINE 15 MG TABLET PO SCH (21:00)
[2019-09-26] MEDS ORDERED: QUEtiapine FUMARATE 200 MG TABLET PO SCH (21:00)
[2019-09-27 06:30] VITALS: BP 114/68
[2019-09-27 08:02] VITALS: BP 113/55
[2019-09-27] MEDS: MULTIVITAMINS WITH MINERALS, THERAPEUTIC TABLET PO SCH (08:36)
[2019-09-27] MEDS: THIAMINE 100 MG TABLET PO SCH ×2 (08:36→16:32)
[2019-09-27] MEDS: NALTREXONE HCL 50 MG TABLET PO SCH (08:36)
[2019-09-27] MEDS: FOLIC ACID 1 MG TABLET PO SCH (08:36)
[2019-09-27] MEDS ORDERED: OLANZapine 5 MG RAPDIS TABLET PO PRN (15:30)
[2019-09-27 17:31] VITALS: BP 122/68
[2019-09-27] MEDS: MIRTAZAPINE 15 MG TABLET PO SCH (20:33)
[2019-09-27] MEDS ORDERED: OLANZapine 5 MG RAPDIS TABLET PO SCH (21:00)
[2019-09-28 05:56] VITALS: BP 125/63
[2019-09-28 08:28] VITALS: BP 120/60
[2019-09-28] MEDS: NALTREXONE HCL 50 MG TABLET PO SCH (08:51)
[2019-09-28] MEDS: THIAMINE 100 MG TABLET PO SCH ×2 (08:51→16:32)
[2019-09-28] MEDS: FOLIC ACID 1 MG TABLET PO SCH (08:51)
[2019-09-28] MEDS: MULTIVITAMINS WITH MINERALS, THERAPEUTIC TABLET PO SCH (08:51)
[2019-09-28] MEDS ORDERED: NALT50TA PO (14:14)
[2019-09-28] MEDS ORDERED: OLAN10TA22 PO (14:14)
[2019-09-28] MEDS ORDERED: MIRT-89 PO (14:14)
[2019-09-28 16:11] VITALS: BP 111/61
[2019-09-28] MEDS: MIRTAZAPINE 15 MG TABLET PO SCH (20:25)
[2019-09-28] MEDS ORDERED: OLANZapine 10 MG RAPDIS TABLET PO SCH (21:00)
[2019-09-29 04:41] VITALS: BP 118/72
[2019-09-29 08:12] VITALS: BP 112/52
[2019-09-29] MEDS: MULTIVITAMINS WITH MINERALS, THERAPEUTIC TABLET PO SCH (08:42)
[2019-09-29] MEDS: FOLIC ACID 1 MG TABLET PO SCH (08:43)
[2019-09-29] MEDS: THIAMINE 100 MG TABLET PO SCH (08:43)
[2019-09-29] MEDS: NALTREXONE HCL 50 MG TABLET PO SCH (08:43)
[2019-09-30] MEDS ORDERED: PALIPERIDONE PALMITATE 156 MG/ML SYRINGE IM ONE (09:00)
== END 2019-09-29 12:15 | disposition home or self-care (01) | DRG 885 ==
LOC: B3A 19:18
PROVIDERS: ADMIT Psychiatry & Neurology Psychiatry; ATTEND Psychiatry & Neurology Psychiatry
DX: F25.9 Schizoaffective disorder, unspecified (principal); F12.90 Cannabis use, unspecified, uncomplicated; F17.200 Nicotine dependence, unspecified, uncomplicated; K21.9 Gastro-esophageal reflux disease without esophagitis; Z59.0 Homelessness; Z91.14 Patient's other noncompliance with medication regimen; Z91.19 Patient's noncompliance with other medical treatment and regimen; Z88.5 Allergy status to narcotic agent
CPT/HCPCS: 87081

== ENCOUNTER 2019-10-10 14:28 | Inpatient (IN) | payer MEDICAID ==
[~2019-10-10] VITALS: Ht 185.4 cm; Wt 99.3 kg
[~2019-10-10 14:28] MED LIST changes: +MIRT-89 PO; -MIRT30 PO; +OLAN10TA22 PO; -QUET200T29 PO
[2019-10-10] MEDS ORDERED: PALIPERIDONE PALMITATE 234 MG/1.5 ML SYRINGE IM ONE (15:30)
[2019-10-10] MEDS ORDERED: MAGNESIUM HYDROXIDE SUSPENSION 30 ML UDCUP PO PRN (15:30)
[2019-10-10] MEDS ORDERED: OLANZapine 5 MG RAPDIS TABLET PO PRN (15:30)
[2019-10-10] MEDS ORDERED: LOPERAMIDE HCL 2 MG CAPSULE PO PRN (15:30)
[2019-10-10] MEDS ORDERED: ACETAMINOPHEN 325 MG TABLET PO PRN (15:30)
[2019-10-10] MEDS ORDERED: HydrOXYzine PAMOATE 50 MG CAPSULE PO PRN (15:30)
[2019-10-10] MEDS ORDERED: ZOLPIDEM TARTRATE 10 MG TABLET PO PRN (15:30)
[2019-10-10] MEDS ORDERED: LORazepam 2 MG TABLET PO PRN (15:30)
[2019-10-10] MEDS ORDERED: MAG HYDROX/AL HYDROX/SIMETH ES 30 ML SUSPENSION UDCUP PO PRN (15:30)
[2019-10-10] MEDS ORDERED: GuaiFENesin/D-METHORPHAN [SUGAR-FREE] 200-20MG/10 ML SYRUP UDCUP PO PRN (15:30)
[2019-10-10 17:00] VITALS: BP 128/73
[2019-10-10] MEDS: THIAMINE 100 MG TABLET PO SCH (17:30)
[2019-10-10] MEDS: MIRTAZAPINE 15 MG TABLET PO SCH (20:32)
[2019-10-10] MEDS: OLANZapine 5 MG RAPDIS TABLET PO SCH (20:32)
[2019-10-11 03:51] VITALS: BP 125/74
[2019-10-11] MEDS: FOLIC ACID 1 MG TABLET PO SCH (09:57)
[2019-10-11] MEDS: NALTREXONE HCL 50 MG TABLET PO SCH (09:57)
[2019-10-11] MEDS: THIAMINE 100 MG TABLET PO SCH ×2 (09:57→16:48)
[2019-10-11] MEDS: MULTIVITAMINS WITH MINERALS, THERAPEUTIC TABLET PO SCH (09:58)
[2019-10-11 10:01] VITALS: BP 129/82
[2019-10-11] MEDS: OLANZapine 5 MG RAPDIS TABLET PO SCH (20:21)
[2019-10-11] MEDS: MIRTAZAPINE 15 MG TABLET PO SCH (20:21)
[2019-10-12 05:12] VITALS: BP 121/68
[2019-10-12 08:41] LABS: BASOPHILS % (AUTO) 0.3 % (0.0-2.0); EOSINOPHILS % (AUTO) 3.7 % (1.0-6.0); HEMATOCRIT 40.3 % (41-53); HEMOGLOBIN 13.4 g/dL (13.5-17.5); LYMPHOCYTES # (AUTO) 1.2 K/uL (1.0-4.8); LYMPHOCYTES % (AUTO) 35.8 % (22.0-44.0); MEAN CORPUSCULAR HGB CONC 33.2 G/dL (31.0-37.0); MEAN CORPUSCULAR VOLUME 87 fL (80-100); MONOCYTES # (AUTO) 0.4 K/uL (0.1-1.0); MONOCYTES % (AUTO) 11.3 % (2.0-9.0); NEUTROPHILS # (AUTO) 1.6 K/uL (1.8-7.7); NEUTROPHILS % (AUTO) 48.9 % (40.0-70.0); PLATELET COUNT (AUTO) 218 K/uL (150-450); RED BLOOD CELL COUNT(AUTO) 4.61 MIL/uL (4.50-5.90); RED CELL DISTRIBUTION WIDTH 15.1 % (11.5-14.5)
[2019-10-12 08:50] LABS: HEMOGLOBIN A1C 5.2 % (3.8-5.6)
[2019-10-12 09:02] LABS: ALANINE AMINOTRANSFERASE 43 U/L (12-78); ALBUMIN 3.3 g/dL (3.4-5.0); ALKALINE PHOSPHATASE 48 U/L (46-116); ANION GAP 6 mmol/L (8-16); ASPARTATE AMINOTRANSFERASE 27 U/L (15-37); BILIRUBIN,TOTAL 0.3 mg/dL (0.1-1.0); CALCIUM, TOTAL 8.9 mg/dL (8.8-10.5); CARBON DIOXIDE 28 mmol/L (22-29); CHLORIDE 103 mmol/L (98-107); CHOLESTEROL 114 mg/dL (131-200); CREATININE 0.93 mg/dL (0.60-1.30); GLOMERULAR FILTR. RATE CALC > 60 mL/min (>60); GLUCOSE,RANDOM 91 mg/dL (70-110); HDL CHOLESTEROL 58 mg/dL (40-60); LDL CHOL (CALC.) 50 mg/dL (0-130); POTASSIUM 3.3 mmol/L (3.5-5.1); SODIUM SERUM 137 mmol/L (136-145); TOTAL PROTEIN, SERUM 6.6 g/dL (6.4-8.2); TRIGLYCERIDES 31 mg/dL (15-150); UREA NITROGEN, BLOOD 6 mg/dL (7-18)
[2019-10-12] MEDS: NALTREXONE HCL 50 MG TABLET PO SCH (09:30)
[2019-10-12] MEDS: MULTIVITAMINS WITH MINERALS, THERAPEUTIC TABLET PO SCH (09:30)
[2019-10-12] MEDS: FOLIC ACID 1 MG TABLET PO SCH (09:30)
[2019-10-12] MEDS: THIAMINE 100 MG TABLET PO SCH ×2 (09:30→16:35)
[2019-10-12 16:12] VITALS: BP 131/78
[2019-10-12] MEDS: OLANZapine 10 MG RAPDIS TABLET PO SCH (20:51)
[2019-10-12] MEDS: MIRTAZAPINE 15 MG TABLET PO SCH (20:51)
[2019-10-13 08:16] VITALS: BP 135/62
[2019-10-13] MEDS: THIAMINE 100 MG TABLET PO SCH ×3 (09:26→16:56)
[2019-10-13] MEDS: FOLIC ACID 1 MG TABLET PO SCH (09:26)
[2019-10-13] MEDS: NALTREXONE HCL 50 MG TABLET PO SCH (09:26)
[2019-10-13] MEDS: MULTIVITAMINS WITH MINERALS, THERAPEUTIC TABLET PO SCH (09:26)
[2019-10-13 16:23] VITALS: BP 117/66
[2019-10-13] MEDS: MIRTAZAPINE 30 MG TABLET PO SCH (21:37)
[2019-10-13] MEDS: OLANZapine 10 MG RAPDIS TABLET PO SCH (21:37)
[2019-10-14] MEDS: PROMETHAZINE HCL 25 MG TABLET PO PRN ×2 (00:31→22:03)
[2019-10-14] MEDS: MULTIVITAMINS WITH MINERALS, THERAPEUTIC TABLET PO SCH (08:32)
[2019-10-14] MEDS: THIAMINE 100 MG TABLET PO SCH ×2 (08:32→16:27)
[2019-10-14] MEDS: FOLIC ACID 1 MG TABLET PO SCH (08:32)
[2019-10-14] MEDS: NALTREXONE HCL 50 MG TABLET PO SCH (08:32)
[2019-10-14] MEDS ORDERED: PALIPERIDONE PALMITATE 156 MG/ML SYRINGE IM ONE (09:00)
[2019-10-14 16:20] VITALS: BP 124/67
[2019-10-14] MEDS: OLANZapine 10 MG RAPDIS TABLET PO SCH (20:14)
[2019-10-14] MEDS: MIRTAZAPINE 30 MG TABLET PO SCH (20:14)
[2019-10-15 03:47] VITALS: BP 111/77
[2019-10-15] MEDS: THIAMINE 100 MG TABLET PO SCH ×2 (08:56→16:52)
[2019-10-15] MEDS: MULTIVITAMINS WITH MINERALS, THERAPEUTIC TABLET PO SCH (08:56)
[2019-10-15] MEDS: NALTREXONE HCL 50 MG TABLET PO SCH (08:56)
[2019-10-15] MEDS: FOLIC ACID 1 MG TABLET PO SCH (08:56)
[2019-10-15 09:28] VITALS: BP 133/68
[2019-10-15 16:18] VITALS: BP 136/76
[2019-10-15] MEDS: OLANZapine 10 MG RAPDIS TABLET PO SCH (20:08)
[2019-10-15] MEDS: MIRTAZAPINE 30 MG TABLET PO SCH (20:08)
[2019-10-16] MEDS: THIAMINE 100 MG TABLET PO SCH (09:00)
[2019-10-16] MEDS: MULTIVITAMINS WITH MINERALS, THERAPEUTIC TABLET PO SCH (09:00)
[2019-10-16] MEDS: NALTREXONE HCL 50 MG TABLET PO SCH (09:00)
[2019-10-16] MEDS: FOLIC ACID 1 MG TABLET PO SCH (09:00)
[2019-10-16] MEDS ORDERED: POTASSIUM CHLORIDE 20 MEQ ER TABLET PO ONE ×2 (10:45→21:00)
[2019-10-16 14:46] VITALS: BP 145/68
[2019-10-16] MEDS ORDERED: MIRT30 PO ×2 (15:47→16:12)
[2019-10-16] MEDS ORDERED: NALT50TA PO (15:47)
[2019-10-16] MEDS ORDERED: OLAN10TA22 PO (15:47)
[2019-10-16 16:15] VITALS: BP 105/59
[2019-10-16] MEDS ORDERED: MIRTAZAPINE 30 MG TABLET PO SCH (21:00)
== END 2019-10-16 18:20 | disposition home or self-care (01) | DRG 885 ==
LOC: B3A 16:36
PROVIDERS: ADMIT Psychiatry & Neurology Psychiatry; ATTEND Psychiatry & Neurology Psychiatry
DX: F25.9 Schizoaffective disorder, unspecified (principal); R45.851 Suicidal ideations; K21.9 Gastro-esophageal reflux disease without esophagitis; D64.9 Anemia, unspecified; R51 Headache; F17.200 Nicotine dependence, unspecified, uncomplicated; Z59.0 Homelessness; Z79.899 Other long term (current) drug therapy; Z88.5 Allergy status to narcotic agent; Z91.19 Patient's noncompliance with other medical treatment and regimen
CPT/HCPCS: 83036; 86592; 87081

== ENCOUNTER 2019-10-28 17:55 | Inpatient (IN) | payer MEDICAID ==
[~2019-10-28] VITALS: Ht 185.4 cm; Wt 95.3 kg
[~2019-10-28 17:55] MED LIST changes: -MIRT-89 PO; +MIRT30 PO
[2019-10-28] MEDS ORDERED: HALOPERIDOL 5 MG TABLET PO PRN (21:30)
[2019-10-28] MEDS ORDERED: ZOLPIDEM TARTRATE 10 MG TABLET PO PRN ×2 (21:30→22:15)
[2019-10-28] MEDS ORDERED: LORazepam 1 MG TABLET PO PRN (21:30)
[2019-10-28 21:54] VITALS: BP 123/76
[2019-10-28] MEDS ORDERED: ChlorproMAZINE HCL 100 MG TABLET PO PRN (22:15)
[2019-10-29 06:14] VITALS: BP 119/74
[2019-10-29] MEDS ORDERED: QUEtiapine FUMARATE 200 MG TABLET PO SCH (21:00)
[2019-10-30 04:05] VITALS: BP 120/75
[2019-10-30 08:13] LABS: EOSINOPHILS % (AUTO) 5.7 % (1.0-6.0); HEMATOCRIT 43.6 % (41-53); HEMOGLOBIN 14.3 g/dL (13.5-17.5); LYMPHOCYTES # (AUTO) 2.6 K/uL (1.0-4.8); LYMPHOCYTES % (AUTO) 48.6 % (22.0-44.0); MEAN CORPUSCULAR HEMOGLOBIN 28.8 pg (26.0-34.0); MEAN CORPUSCULAR HGB CONC 32.8 G/dL (31.0-37.0); MEAN CORPUSCULAR VOLUME 88 fL (80-100); MONOCYTES # (AUTO) 0.4 K/uL (0.1-1.0); MONOCYTES % (AUTO) 8.1 % (2.0-9.0); NEUTROPHILS # (AUTO) 1.9 K/uL (1.8-7.7); NEUTROPHILS % (AUTO) 36.6 % (40.0-70.0); PLATELET COUNT (AUTO) 279 K/uL (150-450); RED BLOOD CELL COUNT(AUTO) 4.96 MIL/uL (4.50-5.90); RED CELL DISTRIBUTION WIDTH 15.2 % (11.5-14.5)
[2019-10-30 08:36] LABS: HEMOGLOBIN A1C 5.2 % (3.8-5.6)
[2019-10-30 08:40] LABS: ALANINE AMINOTRANSFERASE 34 U/L (12-78); ALBUMIN 3.5 g/dL (3.4-5.0); ALKALINE PHOSPHATASE 53 U/L (46-116); ANION GAP 5 mmol/L (8-16); ASPARTATE AMINOTRANSFERASE 21 U/L (15-37); BILIRUBIN,TOTAL 0.6 mg/dL (0.1-1.0); CALCIUM, TOTAL 8.9 mg/dL (8.8-10.5); CARBON DIOXIDE 32 mmol/L (22-29); CHLORIDE 100 mmol/L (98-107); CHOL/HDL RATIO 2.3 (4.2-7.3); CHOLESTEROL 135 mg/dL (131-200); FREE T4 (FREE THYROXINE) 0.89 ng/dL (0.76-1.46); GLOMERULAR FILTR. RATE CALC > 60 mL/min (>60); GLUCOSE,RANDOM 96 mg/dL (70-110); HDL CHOLESTEROL 60 mg/dL (40-60); LDL CHOL (CALC.) 62 mg/dL (0-130); POTASSIUM 3.1 mmol/L (3.5-5.1); SODIUM SERUM 137 mmol/L (136-145); THYROID STIMULATING HORMONE 0.88 uIU/mL (0.36-3.74); TOTAL PROTEIN, SERUM 6.8 g/dL (6.4-8.2); TRIGLYCERIDES 67 mg/dL (15-150); UREA NITROGEN, BLOOD 5 mg/dL (7-18)
[2019-10-30] MEDS ORDERED: MAGNESIUM HYDROXIDE SUSPENSION 30 ML UDCUP PO PRN (13:15)
[2019-10-30] MEDS ORDERED: MAG HYDROX/AL HYDROX/SIMETH ES 30 ML SUSPENSION UDCUP PO PRN (13:15)
[2019-10-30] MEDS ORDERED: HydrOXYzine PAMOATE 50 MG CAPSULE PO PRN (13:15)
[2019-10-30] MEDS ORDERED: GuaiFENesin/D-METHORPHAN [SUGAR-FREE] 200-20MG/10 ML SYRUP UDCUP PO PRN (13:15)
[2019-10-30] MEDS: ACETAMINOPHEN 325 MG TABLET PO PRN (13:45)
[2019-10-30 16:07] VITALS: BP 127/75
[2019-10-30] MEDS: THIAMINE 100 MG TABLET PO SCH (16:08)
[2019-10-30] MEDS ORDERED: POTASSIUM CHLORIDE 20 MEQ ER TABLET PO ONE (17:00)
[2019-10-30] MEDS ORDERED: MIRTAZAPINE 15 MG TABLET PO SCH (21:00)
[2019-10-30] MEDS ORDERED: OLANZapine 5 MG RAPDIS TABLET PO SCH (21:00)
[2019-10-31 01:56] VITALS: BP 119/68
[2019-10-31 08:32] VITALS: BP 123/82
[2019-10-31] MEDS ORDERED: POTASSIUM CHLORIDE 20 MEQ ER TABLET PO ONE ×2 (09:00→17:00)
[2019-10-31] MEDS: MULTIVITAMINS WITH MINERALS, THERAPEUTIC TABLET PO SCH (09:22)
[2019-10-31] MEDS: THIAMINE 100 MG TABLET PO SCH ×2 (09:22→16:38)
[2019-10-31] MEDS: FOLIC ACID 1 MG TABLET PO SCH (09:22)
[2019-10-31] MEDS: NALTREXONE HCL 50 MG TABLET PO SCH (09:22)
[2019-10-31 16:20] VITALS: BP 134/76
[2019-10-31] MEDS: OLANZapine 10 MG RAPDIS TABLET PO SCH (20:25)
[2019-10-31] MEDS ORDERED: MIRTAZAPINE 30 MG TABLET PO SCH (21:00)
[2019-11-01 08:31] LABS: APPEARANCE,URINE CLEAR (CLEAR); BILIRUBIN,URINE NEGATIVE (NEGATIVE); GLUCOSE, URINE (UA) NEGATIVE (NEGATIVE); KETONES,URINE NEGATIVE (NEGATIVE); LEUKOCYTE ESTERASE ,URINE NEGATIVE (NEGATIVE); NITRATE,URINE NEGATIVE (NEGATIVE); OCCULT BLOOD,URINE NEGATIVE (NEGATIVE); PROTEIN,URINE NEGATIVE (NEGATIVE)
[2019-11-01 08:32] VITALS: BP 132/74
[2019-11-01 08:37] LABS: AMPHET/METH SCREEN,URINE NEGATIVE (NEGATIVE); BARBITURATE SCREEN, URINE NEGATIVE (NEGATIVE); BENZODIAZEPINES SCREEN,URINE NEGATIVE (NEGATIVE); CANNABINOID SCREEN,URINE NEGATIVE (NEGATIVE); COCAINE SCREEN,URINE NEGATIVE (NEGATIVE); METHADONE SCREEN, URINE NEGATIVE (NEGATIVE); OPIATE SCREEN,URINE NEGATIVE (NEGATIVE)
[2019-11-01 08:38] LABS: PHENCYCLIDINE SCREEN,URINE NEGATIVE (NEGATIVE)
[2019-11-01] MEDS: THIAMINE 100 MG TABLET PO SCH ×2 (09:21→16:40)
[2019-11-01] MEDS: FOLIC ACID 1 MG TABLET PO SCH (09:21)
[2019-11-01] MEDS: MULTIVITAMINS WITH MINERALS, THERAPEUTIC TABLET PO SCH (09:21)
[2019-11-01] MEDS: NALTREXONE HCL 50 MG TABLET PO SCH (09:21)
[2019-11-01 16:09] VITALS: BP 125/87
[2019-11-01] MEDS: OLANZapine 10 MG RAPDIS TABLET PO SCH ×2 (20:14→20:57)
[2019-11-01] MEDS: MIRTAZAPINE 30 MG TABLET PO SCH (20:14)
[2019-11-02] MEDS: NALTREXONE HCL 50 MG TABLET PO SCH (08:57)
[2019-11-02] MEDS: MULTIVITAMINS WITH MINERALS, THERAPEUTIC TABLET PO SCH (08:57)
[2019-11-02] MEDS: THIAMINE 100 MG TABLET PO SCH ×2 (08:57→16:37)
[2019-11-02] MEDS: FOLIC ACID 1 MG TABLET PO SCH (08:58)
[2019-11-02 11:00] VITALS: BP 138/83
[2019-11-02 16:08] VITALS: BP 103/62
[2019-11-02] MEDS: OLANZapine 5 MG RAPDIS TABLET PO SCH (20:23)
[2019-11-02] MEDS: MIRTAZAPINE 30 MG TABLET PO SCH (20:23)
[2019-11-03 05:24] VITALS: BP 126/68
[2019-11-03 08:00] VITALS: BP 109/62
[2019-11-03] MEDS: THIAMINE 100 MG TABLET PO SCH ×2 (08:40→16:24)
[2019-11-03] MEDS: NALTREXONE HCL 50 MG TABLET PO SCH (08:40)
[2019-11-03] MEDS: FOLIC ACID 1 MG TABLET PO SCH (08:40)
[2019-11-03] MEDS: MULTIVITAMINS WITH MINERALS, THERAPEUTIC TABLET PO SCH (08:40)
[2019-11-03] MEDS: ACETAMINOPHEN 325 MG TABLET PO PRN (17:11)
[2019-11-03 17:12] VITALS: BP 112/73
[2019-11-03] MEDS: OLANZapine 5 MG RAPDIS TABLET PO SCH (20:23)
[2019-11-03] MEDS: MIRTAZAPINE 30 MG TABLET PO SCH (20:23)
[2019-11-04] MEDS: THIAMINE 100 MG TABLET PO SCH ×2 (08:32→16:40)
[2019-11-04] MEDS: NALTREXONE HCL 50 MG TABLET PO SCH (08:32)
[2019-11-04] MEDS: FOLIC ACID 1 MG TABLET PO SCH (08:32)
[2019-11-04] MEDS: MULTIVITAMINS WITH MINERALS, THERAPEUTIC TABLET PO SCH (08:32)
[2019-11-04 08:41] VITALS: BP 103/58
[2019-11-04 16:07] VITALS: BP 112/62
[2019-11-04] MEDS: MIRTAZAPINE 30 MG TABLET PO SCH (20:08)
[2019-11-04] MEDS: OLANZapine 5 MG RAPDIS TABLET PO SCH (20:09)
[2019-11-05 04:46] VITALS: BP 132/85
[2019-11-05] MEDS: MULTIVITAMINS WITH MINERALS, THERAPEUTIC TABLET PO SCH (08:26)
[2019-11-05] MEDS: THIAMINE 100 MG TABLET PO SCH (08:26)
[2019-11-05] MEDS: NALTREXONE HCL 50 MG TABLET PO SCH (08:27)
[2019-11-05] MEDS: FOLIC ACID 1 MG TABLET PO SCH (08:27)
[2019-11-05] MEDS ORDERED: OLAN5TAB40 PO (15:12)
== END 2019-11-05 16:00 | disposition left against medical advice (07) | DRG 750 ==
LOC: B3A 21:00
PROVIDERS: ADMIT Psychiatry & Neurology Psychiatry; ATTEND Psychiatry & Neurology Psychiatry
DX: F25.1 Schizoaffective disorder, depressive type (principal); I10 Essential (primary) hypertension; R45.851 Suicidal ideations; Z53.29 Procedure and treatment not carried out because of patient's decision for other reasons; R41.843 Psychomotor deficit; Z59.0 Homelessness; Z79.899 Other long term (current) drug therapy; Z87.11 Personal history of peptic ulcer disease; Z88.5 Allergy status to narcotic agent; Z91.19 Patient's noncompliance with other medical treatment and regimen
CPT/HCPCS: 80307; 83036; 84132; 84436; 84439; 84443; 87081; G0480

== ENCOUNTER 2019-11-21 10:12 | Inpatient (IN) | payer MEDICAID ==
[~2019-11-21] VITALS: Ht 185.4 cm; Wt 91.9 kg
[~2019-11-21 10:12] MED LIST changes: -OLAN10TA22 PO; +OLAN5TAB40 PO
[2019-11-21] MEDS ORDERED: MAGNESIUM HYDROXIDE SUSPENSION 30 ML UDCUP PO PRN ×2 (10:30→19:00)
[2019-11-21] MEDS ORDERED: DIAZEPAM 10 MG TABLET PO PRN ×2 (10:30→19:00)
[2019-11-21] MEDS ORDERED: PALIPERIDONE PALMITATE 234 MG/1.5 ML SYRINGE IM ONE ×2 (10:30)
[2019-11-21] MEDS ORDERED: MAG HYDROX/AL HYDROX/SIMETH ES 30 ML SUSPENSION UDCUP PO PRN ×2 (10:30→19:00)
[2019-11-21] MEDS ORDERED: LOPERAMIDE HCL 2 MG CAPSULE PO PRN ×2 (10:30→19:00)
[2019-11-21] MEDS ORDERED: HydrOXYzine PAMOATE 50 MG CAPSULE PO PRN ×2 (10:30→19:00)
[2019-11-21] MEDS ORDERED: ZOLPIDEM TARTRATE 10 MG TABLET PO PRN (10:30)
[2019-11-21] MEDS ORDERED: PROMETHAZINE HCL 25 MG TABLET PO PRN (10:30)
[2019-11-21] MEDS ORDERED: OLANZapine 5 MG RAPDIS TABLET PO PRN ×3 (10:30→19:00)
[2019-11-21] MEDS ORDERED: GuaiFENesin/D-METHORPHAN [SUGAR-FREE] 200-20MG/10 ML SYRUP UDCUP PO PRN ×2 (10:30→19:00)
[2019-11-21] MEDS ORDERED: CYANOCOBALAMIN 1,000 MCG/ML VIAL IM ONE ×2 (10:30)
[2019-11-21] MEDS ORDERED: ACETAMINOPHEN 325 MG TABLET PO PRN ×2 (10:30→19:00)
[2019-11-21 14:59] LABS: COVID AG,FIA SOURCE NASAL SWAB
[2019-11-21] MEDS: THIAMINE 100 MG TABLET PO SCH (19:27)
[2019-11-21 19:53] VITALS: BP 127/82
[2019-11-21 20:24] VITALS: BP 127/82
[2019-11-21] MEDS: OLANZapine 5 MG RAPDIS TABLET PO SCH (21:00)
[2019-11-21] MEDS ORDERED: PNEUMOCOCCAL VACCINE POLYVALENT 0.5 ML VIAL [PPSV23] IM ONE (21:00)
[2019-11-21] MEDS: MIRTAZAPINE 15 MG TABLET PO SCH (21:00)
[2019-11-21] MEDS ORDERED: OLANZapine 5 MG RAPDIS TABLET PO SCH (21:00)
[2019-11-21] MEDS ORDERED: THIAMINE 100 MG TABLET PO SCH (21:00)
[2019-11-21] MEDS ORDERED: MIRTAZAPINE 15 MG TABLET PO SCH (21:00)
[2019-11-22] MEDS ORDERED: DIAZEPAM 10 MG TABLET PO PRN ×2 (07:00)
[2019-11-22] MEDS: FOLIC ACID 1 MG TABLET PO SCH (08:19)
[2019-11-22] MEDS: MULTIVITAMINS WITH MINERALS, THERAPEUTIC TABLET PO SCH (08:19)
[2019-11-22] MEDS: DIAZEPAM 10 MG TABLET PO SCH ×4 (08:20→20:48)
[2019-11-22] MEDS: THIAMINE 100 MG TABLET PO SCH ×2 (08:20→17:00)
[2019-11-22 08:23] VITALS: BP 126/75
[2019-11-22] MEDS ORDERED: DIAZEPAM 10 MG TABLET PO SCH (09:00)
[2019-11-22] MEDS ORDERED: MULTIVITAMINS WITH MINERALS, THERAPEUTIC TABLET PO SCH (09:00)
[2019-11-22] MEDS ORDERED: FOLIC ACID 1 MG TABLET PO SCH (09:00)
[2019-11-22 16:00] VITALS: BP 112/66
[2019-11-22 16:07] VITALS: BP 112/66
[2019-11-22] MEDS: MIRTAZAPINE 15 MG TABLET PO SCH (20:43)
[2019-11-22] MEDS: OLANZapine 5 MG RAPDIS TABLET PO SCH (20:44)
[2019-11-23 01:14] VITALS: BP 127/73
[2019-11-23 03:04] VITALS: BP 127/73
[2019-11-23] MEDS: FOLIC ACID 1 MG TABLET PO SCH (09:30)
[2019-11-23] MEDS: DIAZEPAM 10 MG TABLET PO SCH ×4 (09:30→20:31)
[2019-11-23] MEDS: THIAMINE 100 MG TABLET PO SCH ×2 (09:30→17:00)
[2019-11-23] MEDS: MULTIVITAMINS WITH MINERALS, THERAPEUTIC TABLET PO SCH (09:30)
[2019-11-23 16:27] VITALS: BP 118/70
[2019-11-23] MEDS: OLANZapine 10 MG RAPDIS TABLET PO SCH (20:30)
[2019-11-23] MEDS: MIRTAZAPINE 15 MG TABLET PO SCH (20:30)
[2019-11-24 05:00] VITALS: BP 120/81
[2019-11-24] MEDS ORDERED: DIAZEPAM 5 MG TABLET PO PRN ×2 (07:00)
[2019-11-24] MEDS: THIAMINE 100 MG TABLET PO SCH ×2 (09:00→17:00)
[2019-11-24] MEDS: MULTIVITAMINS WITH MINERALS, THERAPEUTIC TABLET PO SCH (09:00)
[2019-11-24] MEDS ORDERED: DIAZEPAM 5 MG TABLET PO SCH (09:00)
[2019-11-24] MEDS: DIAZEPAM 5 MG TABLET PO SCH ×4 (09:00→20:38)
[2019-11-24] MEDS: FOLIC ACID 1 MG TABLET PO SCH (09:00)
[2019-11-24] MEDS ORDERED: LOPERAMIDE HCL 2 MG CAPSULE PO PRN ×2 (10:30)
[2019-11-24 16:37] VITALS: BP 111/70
[2019-11-24] MEDS: MIRTAZAPINE 15 MG TABLET PO SCH (20:35)
[2019-11-24] MEDS: OLANZapine 10 MG RAPDIS TABLET PO SCH (20:35)
[2019-11-25 00:26] VITALS: BP 135/82
[2019-11-25] MEDS: ZOLPIDEM TARTRATE 10 MG TABLET PO PRN ×2 (00:27→20:49)
[2019-11-25] MEDS: PROMETHAZINE HCL 25 MG TABLET PO PRN (00:27)
[2019-11-25] MEDS ORDERED: DIAZEPAM 5 MG TABLET PO PRN ×2 (07:00)
[2019-11-25 08:12] VITALS: BP 135/72
[2019-11-25] MEDS: THIAMINE 100 MG TABLET PO SCH ×2 (09:00→17:00)
[2019-11-25] MEDS ORDERED: PALIPERIDONE PALMITATE 156 MG/ML SYRINGE IM ONE ×2 (09:00)
[2019-11-25] MEDS: FOLIC ACID 1 MG TABLET PO SCH (09:00)
[2019-11-25] MEDS: MULTIVITAMINS WITH MINERALS, THERAPEUTIC TABLET PO SCH (09:00)
[2019-11-25] MEDS: OMEGA-3/DHA/EPA/FISH OIL 1,000 MG CAPSULE PO SCH (09:00)
[2019-11-25 16:06] VITALS: BP 124/72
[2019-11-25] MEDS: MIRTAZAPINE 15 MG TABLET PO SCH (20:25)
[2019-11-25] MEDS: OLANZapine 10 MG RAPDIS TABLET PO SCH (20:26)
[2019-11-26 00:15] VITALS: BP 102/73
[2019-11-26] MEDS: PROMETHAZINE HCL 25 MG TABLET PO PRN (00:16)
[2019-11-26] MEDS: OMEGA-3/DHA/EPA/FISH OIL 1,000 MG CAPSULE PO SCH (09:00)
[2019-11-26] MEDS: FOLIC ACID 1 MG TABLET PO SCH (09:00)
[2019-11-26] MEDS: THIAMINE 100 MG TABLET PO SCH ×2 (09:00→17:00)
[2019-11-26] MEDS: MULTIVITAMINS WITH MINERALS, THERAPEUTIC TABLET PO SCH (09:00)
[2019-11-26 17:34] VITALS: BP 107/69
[2019-11-26] MEDS: MIRTAZAPINE 15 MG TABLET PO SCH (20:05)
[2019-11-26] MEDS: OLANZapine 10 MG RAPDIS TABLET PO SCH (21:00)
[2019-11-27 06:05] VITALS: BP 139/72
[2019-11-27] MEDS: MULTIVITAMINS WITH MINERALS, THERAPEUTIC TABLET PO SCH (08:57)
[2019-11-27] MEDS: THIAMINE 100 MG TABLET PO SCH ×2 (08:57→16:54)
[2019-11-27] MEDS: FOLIC ACID 1 MG TABLET PO SCH (08:57)
[2019-11-27] MEDS: OMEGA-3/DHA/EPA/FISH OIL 1,000 MG CAPSULE PO SCH (08:57)
[2019-11-27 16:09] VITALS: BP 127/85
[2019-11-27] MEDS: MIRTAZAPINE 15 MG TABLET PO SCH (20:40)
[2019-11-27] MEDS: OLANZapine 10 MG RAPDIS TABLET PO SCH (20:41)
[2019-11-28 00:36] VITALS: BP 120/82
[2019-11-28] MEDS: ZOLPIDEM TARTRATE 10 MG TABLET PO PRN (00:39)
[2019-11-28 08:05] VITALS: BP 106/64
[2019-11-28] MEDS: MULTIVITAMINS WITH MINERALS, THERAPEUTIC TABLET PO SCH (08:37)
[2019-11-28] MEDS: FOLIC ACID 1 MG TABLET PO SCH (08:37)
[2019-11-28] MEDS: OMEGA-3/DHA/EPA/FISH OIL 1,000 MG CAPSULE PO SCH (08:38)
[2019-11-28] MEDS: THIAMINE 100 MG TABLET PO SCH ×2 (08:39→16:34)
[2019-11-28 16:04] VITALS: BP 120/90
[2019-11-28] MEDS: MIRTAZAPINE 30 MG TABLET PO SCH (20:38)
[2019-11-28] MEDS: OLANZapine 10 MG RAPDIS TABLET PO SCH (20:38)
[2019-11-29] MEDS: PROMETHAZINE HCL 25 MG TABLET PO PRN (00:35)
[2019-11-29] MEDS: ZOLPIDEM TARTRATE 10 MG TABLET PO PRN (00:35)
[2019-11-29 01:03] VITALS: BP 127/75
[2019-11-29 08:14] VITALS: BP 126/72
[2019-11-29] MEDS: MULTIVITAMINS WITH MINERALS, THERAPEUTIC TABLET PO SCH (09:00)
[2019-11-29] MEDS: OMEGA-3/DHA/EPA/FISH OIL 1,000 MG CAPSULE PO SCH (09:00)
[2019-11-29] MEDS: THIAMINE 100 MG TABLET PO SCH ×2 (09:00→16:32)
[2019-11-29] MEDS: FOLIC ACID 1 MG TABLET PO SCH (09:00)
[2019-11-29 16:12] VITALS: BP 116/65
[2019-11-29] MEDS: MIRTAZAPINE 30 MG TABLET PO SCH (20:08)
[2019-11-29] MEDS: OLANZapine 10 MG RAPDIS TABLET PO SCH (20:08)
[2019-11-30] MEDS: PROMETHAZINE HCL 25 MG TABLET PO PRN (00:03)
[2019-11-30] MEDS: ZOLPIDEM TARTRATE 10 MG TABLET PO PRN (00:03)
[2019-11-30 01:55] VITALS: BP 112/77
[2019-11-30] MEDS: MULTIVITAMINS WITH MINERALS, THERAPEUTIC TABLET PO SCH (08:32)
[2019-11-30] MEDS: THIAMINE 100 MG TABLET PO SCH (08:32)
[2019-11-30] MEDS: FOLIC ACID 1 MG TABLET PO SCH (08:32)
[2019-11-30] MEDS: OMEGA-3/DHA/EPA/FISH OIL 1,000 MG CAPSULE PO SCH (08:32)
[2019-11-30] MEDS ORDERED: MIRT30 PO (13:17)
[2019-11-30] MEDS ORDERED: OLAN10TA22 PO (13:17)
[2019-11-30] MEDS ORDERED: NALT50TA PO (13:17)
[2019-11-30] MEDS ORDERED: OMEG-135 PO (13:17)
[2019-12-01] MEDS ORDERED: NALTREXONE HCL 50 MG TABLET PO SCH (09:00)
== END 2019-11-30 17:05 | disposition home or self-care (01) | DRG 750 ==
LOC: EDSTATUS 10:12 → EMS 12:17 → B2X 18:48 → B2S 11-29 18:05
PROVIDERS: ADMIT Psychiatry & Neurology Psychiatry; ATTEND Psychiatry & Neurology Psychiatry
DX: F25.9 Schizoaffective disorder, unspecified (principal); R45.851 Suicidal ideations; F10.20 Alcohol dependence, uncomplicated; K21.9 Gastro-esophageal reflux disease without esophagitis; Z20.828 Contact with and (suspected) exposure to other viral communicable diseases; Z88.5 Allergy status to narcotic agent; Z59.0 Homelessness; Z87.891 Personal history of nicotine dependence; Z28.21 Immunization not carried out because of patient refusal
CPT/HCPCS: 87426; J3420

== ENCOUNTER 2020-01-28 02:21 | Inpatient (IN) | payer MEDICAID ==
[~2020-01-28] VITALS: Ht 185.4 cm; Wt 101.2 kg
[2020-01-28 02:00] VITALS: BP 124/88
[~2020-01-28 02:21] MED LIST changes: +OLAN10TA22 PO; -OLAN5TAB40 PO; +OMEG-135 PO
[2020-01-28] MEDS ORDERED: LORazepam 2 MG TABLET PO PRN (02:30)
[2020-01-28] MEDS ORDERED: ZOLPIDEM TARTRATE 10 MG TABLET PO PRN (02:30)
[2020-01-28] MEDS ORDERED: HALOPERIDOL 5 MG TABLET PO PRN (02:30)
[2020-01-28] MEDS ORDERED: INFLUENZA VIRUS VACCINE QVS 2020-21 (6MO+)/PF 60 MCG/0.5 ML SYRINGE IM ONE (05:45)
[2020-01-28 07:06] LABS: APPEARANCE,URINE TURBID (CLEAR); BILIRUBIN,URINE NEGATIVE (NEGATIVE); GLUCOSE, URINE (UA) NEGATIVE (NEGATIVE); KETONES,URINE TRACE mg/dL (NEGATIVE); LEUKOCYTE ESTERASE ,URINE NEGATIVE (NEGATIVE); NITRATE,URINE NEGATIVE (NEGATIVE); OCCULT BLOOD,URINE NEGATIVE (NEGATIVE); PROTEIN,URINE NEGATIVE (NEGATIVE); UROBILINOGEN,URINE 0.2 mg/dL (<=1.0)
[2020-01-28] MEDS ORDERED: GuaiFENesin/D-METHORPHAN [SUGAR-FREE] 200-20MG/10 ML SYRUP UDCUP PO PRN (07:15)
[2020-01-28] MEDS ORDERED: CloNIDine HCL 0.1 MG TABLET PO PRN (07:15)
[2020-01-28] MEDS ORDERED: MAGNESIUM HYDROXIDE SUSPENSION 30 ML UDCUP PO PRN (07:15)
[2020-01-28] MEDS ORDERED: ALBUTEROL SULFATE HFA 90 MCG/PUFF 8 GM INHALER IH PRN (07:15)
[2020-01-28] MEDS ORDERED: ACETAMINOPHEN 325 MG TABLET PO PRN (07:15)
[2020-01-28] MEDS ORDERED: ONDANSETRON HCL 4 MG TABLET PO PRN (07:15)
[2020-01-28] MEDS ORDERED: DOCUSATE SODIUM 100 MG CAPSULE PO PRN (07:15)
[2020-01-28] MEDS ORDERED: NICOTINE 14 MG/24 HOUR PATCH TD PRN (07:15)
[2020-01-28] MEDS ORDERED: MAG HYDROX/AL HYDROX/SIMETH ES 30 ML SUSPENSION UDCUP PO PRN (07:15)
[2020-01-28] MEDS ORDERED: LOPERAMIDE HCL 2 MG CAPSULE PO PRN (07:15)
[2020-01-28] MEDS ORDERED: PETROLATUM,WHITE 28 GM JELLY TP PRN (07:15)
[2020-01-28 08:53] VITALS: BP 125/71
[2020-01-28] MEDS: IBUPROFEN 400 MG TABLET PO PRN (09:02)
[2020-01-28] MEDS: OMEGA-3/DHA/EPA/FISH OIL 1,000 MG CAPSULE PO SCH (09:03)
[2020-01-28] MEDS: NALTREXONE HCL 50 MG TABLET PO SCH (10:19)
[2020-01-28 16:50] VITALS: BP 143/87
[2020-01-28] MEDS: OLANZapine 10 MG TABLET PO SCH (20:48)
[2020-01-28] MEDS: MIRTAZAPINE 30 MG TABLET PO SCH (20:48)
[2020-01-29 08:00] VITALS: BP 99/57
[2020-01-29] MEDS: OMEGA-3/DHA/EPA/FISH OIL 1,000 MG CAPSULE PO SCH (10:14)
[2020-01-29] MEDS: NALTREXONE HCL 50 MG TABLET PO SCH (10:15)
[2020-01-29 16:00] VITALS: BP 118/60
[2020-01-29] MEDS: MIRTAZAPINE 30 MG TABLET PO SCH (20:28)
[2020-01-29] MEDS: OLANZapine 10 MG TABLET PO SCH (20:28)
[2020-01-29 20:29] VITALS: BP 120/80
[2020-01-29] MEDS: IBUPROFEN 400 MG TABLET PO PRN (20:29)
[2020-01-29 21:00] VITALS: BP 118/68
[2020-01-30] MEDS: NALTREXONE HCL 50 MG TABLET PO SCH (09:00)
[2020-01-30] MEDS: OMEGA-3/DHA/EPA/FISH OIL 1,000 MG CAPSULE PO SCH (09:00)
[2020-01-30 16:15] VITALS: BP 148/76
[2020-01-30] MEDS: MIRTAZAPINE 30 MG TABLET PO SCH (20:43)
[2020-01-30] MEDS: OLANZapine 10 MG TABLET PO SCH (20:43)
[2020-01-31] MEDS: NALTREXONE HCL 50 MG TABLET PO SCH (09:00)
[2020-01-31] MEDS: OMEGA-3/DHA/EPA/FISH OIL 1,000 MG CAPSULE PO SCH (09:00)
[2020-01-31 09:32] VITALS: BP 139/82
[2020-01-31 16:00] VITALS: BP 100/66
[2020-01-31] MEDS: MIRTAZAPINE 30 MG TABLET PO SCH (20:17)
[2020-01-31] MEDS: OLANZapine 10 MG TABLET PO SCH (20:17)
[2020-02-01 08:00] VITALS: BP 134/75
[2020-02-01] MEDS: OMEGA-3/DHA/EPA/FISH OIL 1,000 MG CAPSULE PO SCH (09:00)
[2020-02-01] MEDS ORDERED: MIRT30 PO (10:36)
[2020-02-01] MEDS ORDERED: OMEG-135 PO (10:37)
[2020-02-01] MEDS ORDERED: OLAN10TA3 PO (10:37)
== END 2020-02-01 14:44 | disposition home or self-care (01) | DRG 750 ==
LOC: 3EI 03:21
PROVIDERS: ADMIT Psychiatry & Neurology Child & Adolescent Psychiatry; ATTEND Psychiatry & Neurology Child & Adolescent Psychiatry
DX: F20.0 Paranoid schizophrenia (principal); E87.6 Hypokalemia; F10.10 Alcohol abuse, uncomplicated; F41.9 Anxiety disorder, unspecified; F19.10 Other psychoactive substance abuse, uncomplicated; F22 Delusional disorders; F99 Mental disorder, not otherwise specified; S93.409A Sprain of unspecified ligament of unspecified ankle, initial encounter; X58.XXXA Exposure to other specified factors, initial encounter; Z79.899 Other long term (current) drug therapy; Z87.11 Personal history of peptic ulcer disease; Z91.14 Patient's other noncompliance with medication regimen; Z28.21 Immunization not carried out because of patient refusal; Z88.5 Allergy status to narcotic agent; Y93.89 Activity, other specified; Y92.89 Other specified places as the place of occurrence of the external cause; Y99.8 Other external cause status
CPT/HCPCS: 87081

== ENCOUNTER 2020-04-08 17:19 | Emergency (ER) | payer MEDICAID ==
[~2020-04-08] VITALS: Ht 185.4 cm; Wt 95.5 kg
[~2020-04-08 17:19] MED LIST changes: -NALT50TA PO; -OLAN10TA22 PO; +OLAN10TA3 PO
[2020-04-08] MEDS ORDERED: HALOPERIDOL 5 MG TABLET PO ONE (18:15)
[2020-04-08] MEDS ORDERED: LORazepam 2 MG TABLET PO ONE (18:15)
[2020-04-08 18:49] LABS: BASOPHILS % (AUTO) 0.3 % (0.0-2.0); HEMATOCRIT 39.9 % (41-53); HEMOGLOBIN 13.2 g/dL (13.5-17.5); LYMPHOCYTES # (AUTO) 1.6 K/uL (1.0-4.8); LYMPHOCYTES % (AUTO) 20.9 % (22.0-44.0); MEAN CORPUSCULAR HEMOGLOBIN 28.1 pg (26.0-34.0); MEAN CORPUSCULAR HGB CONC 33.2 G/dL (31.0-37.0); MEAN CORPUSCULAR VOLUME 85 fL (80-100); MONOCYTES # (AUTO) 0.8 K/uL (0.1-1.0); MONOCYTES % (AUTO) 10.2 % (2.0-9.0); NEUTROPHILS # (AUTO) 5.2 K/uL (1.8-7.7); NEUTROPHILS % (AUTO) 66.6 % (40.0-70.0); PLATELET COUNT (AUTO) 234 K/uL (150-450); RED BLOOD CELL COUNT(AUTO) 4.71 MIL/uL (4.50-5.90)
[2020-04-08 18:59] LABS: ANION GAP 11 mmol/L (8-16); CALCIUM, TOTAL 9.5 mg/dL (8.8-10.5); CARBON DIOXIDE 29 mmol/L (22-29); CHLORIDE 103 mmol/L (98-107); CREATININE 0.93 mg/dL (0.60-1.30); GLOMERULAR FILTR. RATE CALC > 60 mL/min (>60); GLUCOSE,RANDOM 87 mg/dL (70-110); POTASSIUM 3.5 mmol/L (3.5-5.1); SODIUM SERUM 143 mmol/L (136-145); UREA NITROGEN, BLOOD 15 mg/dL (7-18)
[2020-04-08 19:04] LABS: ALANINE AMINOTRANSFERASE 59 U/L (12-78); ALBUMIN 4.2 g/dL (3.4-5.0); ALKALINE PHOSPHATASE 55 U/L (46-116); ASPARTATE AMINOTRANSFERASE 62 U/L (15-37); BILIRUBIN,TOTAL 1.1 mg/dL (0.1-1.0)
[2020-04-09 00:15] VITALS: BP 124/82
== END 2020-04-09 01:54 | disposition home or self-care (01) ==
LOC: EMS 17:19
DX: F22 Delusional disorders (principal); F15.10 Other stimulant abuse, uncomplicated
CPT/HCPCS: 80053; 85025; 99284; G0480

== ENCOUNTER 2020-08-29 23:22 | Inpatient (IN) | payer MEDICAID ==
[~2020-08-29] VITALS: Ht 185.4 cm; Wt 104.9 kg
[~2020-08-29 23:22] MED LIST changes: -OLAN10TA3 PO; +OLAN10TA74 PO
[2020-08-29] MEDS ORDERED: QUET100T PO (23:38)
[2020-08-30 01:06] LABS: BASOPHILS % (AUTO) 0.4 % (0.0-2.0); HEMATOCRIT 39.6 % (41-53); HEMOGLOBIN 13.1 g/dL (13.5-17.5); LYMPHOCYTES # (AUTO) 3.1 K/uL (1.0-4.8); LYMPHOCYTES % (AUTO) 34.2 % (22.0-44.0); MEAN CORPUSCULAR HEMOGLOBIN 28.1 pg (26.0-34.0); MEAN CORPUSCULAR HGB CONC 33.1 G/dL (31.0-37.0); MEAN CORPUSCULAR VOLUME 85 fL (80-100); MONOCYTES # (AUTO) 0.9 K/uL (0.1-1.0); MONOCYTES % (AUTO) 10.2 % (2.0-9.0); NEUTROPHILS # (AUTO) 4.9 K/uL (1.8-7.7); NEUTROPHILS % (AUTO) 54.2 % (40.0-70.0); PLATELET COUNT (AUTO) 237 K/uL (150-450); RED BLOOD CELL COUNT(AUTO) 4.67 MIL/uL (4.50-5.90); RED CELL DISTRIBUTION WIDTH 15.2 % (11.5-14.5)
[2020-08-30 01:07] LABS: ANION GAP 16 mmol/L (8-16); CALCIUM, TOTAL 9.1 mg/dL (8.8-10.5); CARBON DIOXIDE 26 mmol/L (22-29); CHLORIDE 106 mmol/L (98-107); CREATININE 0.98 mg/dL (0.60-1.30); GLOMERULAR FILTR. RATE CALC > 60 mL/min (>60); GLUCOSE,RANDOM 89 mg/dL (70-110); POTASSIUM 3.3 mmol/L (3.5-5.1); SODIUM SERUM 148 mmol/L (136-145); UREA NITROGEN, BLOOD 10 mg/dL (7-18)
[2020-08-30 01:13] LABS: ALANINE AMINOTRANSFERASE 40 U/L (12-78); ALBUMIN 4.2 g/dL (3.4-5.0); ALKALINE PHOSPHATASE 59 U/L (46-116); ASPARTATE AMINOTRANSFERASE 40 U/L (15-37); BILIRUBIN,TOTAL 0.4 mg/dL (0.1-1.0)
[2020-08-30] MEDS ORDERED: LORazepam 2 MG TABLET PO PRN (02:15)
[2020-08-30] MEDS ORDERED: HALOPERIDOL 5 MG TABLET PO PRN (02:15)
[2020-08-30] MEDS ORDERED: POTASSIUM CHLORIDE 20 MEQ ER TABLET PO ONE (03:15)
[2020-08-30 03:19] LABS: COVID AG,FIA SOURCE NASOPHARYNGEAL
[2020-08-30] MEDS ORDERED: DiphenhydrAMINE HCL 25 MG CAPSULE PO ONE (03:30)
[2020-08-30] MEDS ORDERED: HALOPERIDOL 5 MG TABLET PO ONE (03:30)
[2020-08-30] MEDS ORDERED: LORazepam 2 MG TABLET PO ONE (03:30)
[2020-08-30] MEDS ORDERED: ONDANSETRON HCL 4 MG TABLET PO PRN (07:30)
[2020-08-30] MEDS ORDERED: ALBUTEROL SULFATE HFA 90 MCG/PUFF 8 GM INHALER IH PRN (07:30)
[2020-08-30] MEDS ORDERED: ACETAMINOPHEN 325 MG TABLET PO PRN (07:30)
[2020-08-30] MEDS ORDERED: IBUPROFEN 400 MG TABLET PO PRN (07:30)
[2020-08-30] MEDS ORDERED: MAG HYDROX/AL HYDROX/SIMETH ES 30 ML SUSPENSION UDCUP PO PRN (07:30)
[2020-08-30] MEDS ORDERED: NICOTINE 14 MG/24 HOUR PATCH TD PRN (07:30)
[2020-08-30] MEDS ORDERED: MAGNESIUM HYDROXIDE SUSPENSION 30 ML UDCUP PO PRN (07:30)
[2020-08-30] MEDS ORDERED: DOCUSATE SODIUM 100 MG CAPSULE PO PRN (07:30)
[2020-08-30] MEDS ORDERED: PETROLATUM,WHITE 28 GM JELLY TP PRN (07:30)
[2020-08-30] MEDS ORDERED: LOPERAMIDE HCL 2 MG CAPSULE PO PRN (07:30)
[2020-08-30] MEDS ORDERED: GuaiFENesin/D-METHORPHAN [SUGAR-FREE] 200-20MG/10 ML SYRUP UDCUP PO PRN (07:30)
[2020-08-30] MEDS ORDERED: CloNIDine HCL 0.1 MG TABLET PO PRN (07:30)
[2020-08-30 10:29] VITALS: BP 107/55
[2020-08-30] MEDS: MIRTAZAPINE 30 MG TABLET PO SCH (21:16)
[2020-08-30] MEDS: QUEtiapine FUMARATE 100 MG TABLET PO SCH (21:17)
[2020-08-30] MEDS: OLANZapine 10 MG TABLET PO SCH (21:17)
[2020-08-31 08:05] VITALS: BP 94/55
[2020-08-31] MEDS: MIRTAZAPINE 30 MG TABLET PO SCH (21:19)
[2020-08-31] MEDS: OLANZapine 10 MG TABLET PO SCH (21:19)
[2020-08-31] MEDS: QUEtiapine FUMARATE 100 MG TABLET PO SCH (21:21)
[2020-09-01] MEDS: MIRTAZAPINE 30 MG TABLET PO SCH (20:55)
[2020-09-01] MEDS: QUEtiapine FUMARATE 100 MG TABLET PO SCH (20:56)
[2020-09-01] MEDS: OLANZapine 10 MG TABLET PO SCH (20:56)
[2020-09-02] MEDS: ZOLPIDEM TARTRATE 10 MG TABLET PO PRN (00:41)
[2020-09-02 02:49] VITALS: BP 111/67
[2020-09-02 08:39] VITALS: BP 116/43
[2020-09-02] MEDS: OLANZapine 10 MG TABLET PO SCH (21:00)
[2020-09-02] MEDS: MIRTAZAPINE 30 MG TABLET PO SCH (21:22)
[2020-09-02] MEDS: QUEtiapine FUMARATE 100 MG TABLET PO SCH (21:23)
[2020-09-03 04:44] VITALS: BP 113/60
[2020-09-03 08:45] VITALS: BP 116/63
[2020-09-03 16:19] VITALS: BP 130/76
[2020-09-03] MEDS: QUEtiapine FUMARATE 100 MG TABLET PO SCH (20:45)
[2020-09-03] MEDS: MIRTAZAPINE 30 MG TABLET PO SCH (20:46)
[2020-09-03] MEDS: OLANZapine 10 MG TABLET PO SCH (20:50)
[2020-09-04 00:59] VITALS: BP 113/62
[2020-09-04 08:13] LABS: COVID AG,FIA SOURCE NASOPHARYNGEAL
[2020-09-04 16:37] VITALS: BP 109/73
[2020-09-04] MEDS: MIRTAZAPINE 30 MG TABLET PO SCH (20:30)
[2020-09-04] MEDS: QUEtiapine FUMARATE 100 MG TABLET PO SCH (20:30)
[2020-09-04] MEDS: OLANZapine 10 MG TABLET PO SCH (21:00)
[2020-09-05 01:24] VITALS: BP 111/70
[2020-09-05] MEDS: OMEPRAZOLE 20 MG CAPSULE PO SCH ×2 (08:55→16:18)
[2020-09-05 09:05] VITALS: BP 114/62
[2020-09-05 16:14] VITALS: BP 135/80
[2020-09-05] MEDS: OLANZapine 10 MG TABLET PO SCH (21:00)
[2020-09-05] MEDS: QUEtiapine FUMARATE 100 MG TABLET PO SCH (21:20)
[2020-09-05] MEDS: MIRTAZAPINE 30 MG TABLET PO SCH (21:20)
[2020-09-06 02:02] VITALS: BP 127/70
[2020-09-06] MEDS: OMEPRAZOLE 20 MG CAPSULE PO SCH ×2 (08:15→16:52)
[2020-09-06 08:29] VITALS: BP 117/69
[2020-09-06 16:21] VITALS: BP 132/77
[2020-09-06] MEDS: OLANZapine 10 MG TABLET PO SCH (21:00)
[2020-09-06] MEDS: MIRTAZAPINE 30 MG TABLET PO SCH (21:41)
[2020-09-06] MEDS: QUEtiapine FUMARATE 100 MG TABLET PO SCH (21:41)
[2020-09-07] MEDS: ZOLPIDEM TARTRATE 10 MG TABLET PO PRN (00:46)
[2020-09-07 02:20] VITALS: BP 137/82
[2020-09-07] MEDS: FOLIC ACID 1 MG TABLET PO SCH (09:13)
[2020-09-07] MEDS: THIAMINE 100 MG TABLET PO SCH (09:13)
[2020-09-07] MEDS: MULTIVITAMINS WITH MINERALS, THERAPEUTIC TABLET PO SCH (09:13)
[2020-09-07] MEDS: OMEPRAZOLE 20 MG CAPSULE PO SCH ×2 (09:14→17:10)
[2020-09-07 10:20] VITALS: BP 127/74
[2020-09-07 16:24] VITALS: BP 114/58
[2020-09-07] MEDS: OLANZapine 10 MG TABLET PO SCH (21:00)
[2020-09-07] MEDS: MIRTAZAPINE 30 MG TABLET PO SCH (21:34)
[2020-09-07] MEDS: QUEtiapine FUMARATE 100 MG TABLET PO SCH (21:35)
[2020-09-08 00:55] VITALS: BP 116/76
[2020-09-08 08:35] VITALS: BP 115/69
[2020-09-08] MEDS: OMEPRAZOLE 20 MG CAPSULE PO SCH ×2 (10:22→17:59)
[2020-09-08] MEDS: THIAMINE 100 MG TABLET PO SCH (10:22)
[2020-09-08] MEDS: FOLIC ACID 1 MG TABLET PO SCH (10:22)
[2020-09-08] MEDS: MULTIVITAMINS WITH MINERALS, THERAPEUTIC TABLET PO SCH (10:22)
[2020-09-08 16:25] VITALS: BP 132/85
[2020-09-08] MEDS: OLANZapine 10 MG TABLET PO SCH (21:00)
[2020-09-08] MEDS: QUEtiapine FUMARATE 100 MG TABLET PO SCH (21:19)
[2020-09-08] MEDS: MIRTAZAPINE 30 MG TABLET PO SCH (21:19)
[2020-09-09 01:44] VITALS: BP 141/98
[2020-09-09 08:21] VITALS: BP 123/70
[2020-09-09] MEDS: FOLIC ACID 1 MG TABLET PO SCH (09:12)
[2020-09-09] MEDS: MULTIVITAMINS WITH MINERALS, THERAPEUTIC TABLET PO SCH (09:12)
[2020-09-09] MEDS: THIAMINE 100 MG TABLET PO SCH (09:12)
[2020-09-09] MEDS: OMEPRAZOLE 20 MG CAPSULE PO SCH (09:12)
[2020-09-09] MEDS ORDERED: OLAN10TA74 PO (10:22)
== END 2020-09-09 13:00 | disposition home or self-care (01) | DRG 750 ==
LOC: EMS 23:27 → B2S 08-30 03:49
PROVIDERS: ADMIT Psychiatry & Neurology Child & Adolescent Psychiatry; ATTEND Psychiatry & Neurology Child & Adolescent Psychiatry
DX: F25.1 Schizoaffective disorder, depressive type (principal); E87.0 Hyperosmolality and hypernatremia; R45.851 Suicidal ideations; E87.6 Hypokalemia; F10.20 Alcohol dependence, uncomplicated; F12.90 Cannabis use, unspecified, uncomplicated; F15.10 Other stimulant abuse, uncomplicated; F17.210 Nicotine dependence, cigarettes, uncomplicated; Z20.822 Contact with and (suspected) exposure to COVID-19; D64.9 Anemia, unspecified; F31.9 Bipolar disorder, unspecified; F19.10 Other psychoactive substance abuse, uncomplicated; G47.00 Insomnia, unspecified; F41.9 Anxiety disorder, unspecified; K21.9 Gastro-esophageal reflux disease without esophagitis; Z59.0 Homelessness; Z87.11 Personal history of peptic ulcer disease; Z91.14 Patient's other noncompliance with medication regimen; Z91.19 Patient's noncompliance with other medical treatment and regimen; Z88.5 Allergy status to narcotic agent; Z79.899 Other long term (current) drug therapy
CPT/HCPCS: 80053; 85025; 99285; G0480

== ENCOUNTER 2020-10-26 10:15 | Inpatient (IN) | payer MEDICAID ==
[~2020-10-26] VITALS: Ht 185.4 cm; Wt 103.4 kg
[2020-10-26 02:00] VITALS: BP 128/78
[~2020-10-26 10:15] MED LIST changes: -OMEG-135 PO; +QUET100T PO
[2020-10-26 12:09] LABS: GLUCOMETER DEV NAME(LOC) POC.BV
[2020-10-26] MEDS ORDERED: PNEUMOCOCCAL VACCINE POLYVALENT 0.5 ML VIAL [PPSV23] IM. ONE (12:30)
[2020-10-26] MEDS ORDERED: ZOLPIDEM TARTRATE 10 MG TABLET PO PRN (13:00)
[2020-10-26] MEDS ORDERED: HALOPERIDOL 5 MG TABLET PO PRN (13:00)
[2020-10-26] MEDS ORDERED: LORazepam 1 MG TABLET PO PRN (13:00)
[2020-10-26 13:33] VITALS: BP 130/84
[2020-10-26 16:00] VITALS: BP 132/74
[2020-10-27 01:43] VITALS: BP 131/75
[2020-10-27] MEDS ORDERED: NICOTINE 14 MG/24 HOUR PATCH TD PRN (07:30)
[2020-10-27] MEDS ORDERED: ACETAMINOPHEN 325 MG TABLET PO PRN (07:30)
[2020-10-27] MEDS ORDERED: ALBUTEROL SULFATE HFA 90 MCG/PUFF 8 GM INHALER IH PRN (07:30)
[2020-10-27] MEDS ORDERED: MAG HYDROX/AL HYDROX/SIMETH ES 30 ML SUSPENSION UDCUP PO PRN (07:30)
[2020-10-27] MEDS ORDERED: MAGNESIUM HYDROXIDE SUSPENSION 30 ML UDCUP PO PRN (07:30)
[2020-10-27] MEDS ORDERED: GuaiFENesin/D-METHORPHAN [SUGAR-FREE] 200-20MG/10 ML SYRUP UDCUP PO PRN (07:30)
[2020-10-27] MEDS ORDERED: ONDANSETRON HCL 4 MG TABLET PO PRN (07:30)
[2020-10-27] MEDS ORDERED: LOPERAMIDE HCL 2 MG CAPSULE PO PRN (07:30)
[2020-10-27] MEDS ORDERED: DOCUSATE SODIUM 100 MG CAPSULE PO PRN (07:30)
[2020-10-27] MEDS ORDERED: PETROLATUM,WHITE 28 GM JELLY TP PRN (07:30)
[2020-10-27] MEDS ORDERED: CloNIDine HCL 0.1 MG TABLET PO PRN (07:30)
[2020-10-27] MEDS ORDERED: IBUPROFEN 400 MG TABLET PO PRN (07:30)
[2020-10-27 08:33] VITALS: BP 118/60
[2020-10-27 08:52] LABS: APPEARANCE,URINE CLEAR (CLEAR); BILIRUBIN,URINE NEGATIVE (NEGATIVE); GLUCOSE, URINE (UA) NEGATIVE (NEGATIVE); KETONES,URINE NEGATIVE (NEGATIVE); LEUKOCYTE ESTERASE ,URINE NEGATIVE (NEGATIVE); NITRATE,URINE NEGATIVE (NEGATIVE); OCCULT BLOOD,URINE NEGATIVE (NEGATIVE); PROTEIN,URINE NEGATIVE (NEGATIVE); UROBILINOGEN,URINE 0.2 mg/dL (<=1.0)
[2020-10-27 08:57] LABS: AMPHET/METH SCREEN,URINE NEGATIVE (NEGATIVE); BARBITURATE SCREEN, URINE NEGATIVE (NEGATIVE); BENZODIAZEPINES SCREEN,URINE NEGATIVE (NEGATIVE); CANNABINOID SCREEN,URINE NEGATIVE (NEGATIVE); COCAINE SCREEN,URINE NEGATIVE (NEGATIVE); METHADONE SCREEN, URINE NEGATIVE (NEGATIVE); OPIATE SCREEN,URINE NEGATIVE (NEGATIVE)
[2020-10-27 08:59] LABS: PHENCYCLIDINE SCREEN,URINE NEGATIVE (NEGATIVE)
[2020-10-27] MEDS: QUEtiapine FUMARATE 100 MG TABLET PO SCH (20:24)
[2020-10-27] MEDS: MIRTAZAPINE 30 MG TABLET PO SCH (20:24)
[2020-10-28 01:02] VITALS: BP 129/71
[2020-10-28 10:29] VITALS: BP 118/63
[2020-10-28 16:28] VITALS: BP 110/68
[2020-10-28] MEDS: QUEtiapine FUMARATE 100 MG TABLET PO SCH (20:43)
[2020-10-28] MEDS: MIRTAZAPINE 30 MG TABLET PO SCH (20:43)
[2020-10-29 08:27] VITALS: BP 111/65
[2020-10-29 16:22] VITALS: BP 115/69
[2020-10-29] MEDS: MIRTAZAPINE 30 MG TABLET PO SCH (20:37)
[2020-10-29] MEDS: QUEtiapine FUMARATE 100 MG TABLET PO SCH (20:37)
[2020-10-30 01:38] VITALS: BP 121/66
[2020-10-30 07:38] LABS: BASOPHILS % (AUTO) 0.3 % (0.0-2.0); EOSINOPHILS % (AUTO) 3.2 % (1.0-6.0); HEMATOCRIT 38.6 % (41-53); HEMOGLOBIN 12.7 g/dL (13.5-17.5); LYMPHOCYTES % (AUTO) 47.5 % (22.0-44.0); MEAN CORPUSCULAR HEMOGLOBIN 28.2 pg (26.0-34.0); MEAN CORPUSCULAR HGB CONC 32.8 G/dL (31.0-37.0); MEAN CORPUSCULAR VOLUME 86 fL (80-100); MONOCYTES # (AUTO) 0.5 K/uL (0.1-1.0); MONOCYTES % (AUTO) 7.7 % (2.0-9.0); NEUTROPHILS # (AUTO) 2.6 K/uL (1.8-7.7); NEUTROPHILS % (AUTO) 41.3 % (40.0-70.0); PLATELET COUNT (AUTO) 252 K/uL (150-450); RED BLOOD CELL COUNT(AUTO) 4.48 MIL/uL (4.50-5.90)
[2020-10-30 08:12] LABS: ALANINE AMINOTRANSFERASE 37 U/L (12-78); ALBUMIN 3.3 g/dL (3.4-5.0); ALKALINE PHOSPHATASE 46 U/L (46-116); ANION GAP 7 mmol/L (8-16); ASPARTATE AMINOTRANSFERASE 21 U/L (15-37); BILIRUBIN,TOTAL 0.2 mg/dL (0.1-1.0); CALCIUM, TOTAL 8.5 mg/dL (8.8-10.5); CARBON DIOXIDE 27 mmol/L (22-29); CHLORIDE 108 mmol/L (98-107); CHOL/HDL RATIO 3.2 (4.2-7.3); CHOLESTEROL 149 mg/dL (131-200); CREATININE 0.85 mg/dL (0.60-1.30); FREE T4 (FREE THYROXINE) 0.89 ng/dL (0.76-1.46); GLOMERULAR FILTR. RATE CALC > 60 mL/min (>60); GLUCOSE,RANDOM 87 mg/dL (70-110); HDL CHOLESTEROL 46 mg/dL (40-60); LDL CHOL (CALC.) 89 mg/dL (0-130); POTASSIUM 3.7 mmol/L (3.5-5.1); SODIUM SERUM 142 mmol/L (136-145); THYROID STIMULATING HORMONE 3.35 uIU/mL (0.36-3.74); TOTAL PROTEIN, SERUM 6.9 g/dL (6.4-8.2); TRIGLYCERIDES 69 mg/dL (15-150); UREA NITROGEN, BLOOD 9 mg/dL (7-18)
[2020-10-30 08:20] VITALS: BP 134/83
[2020-10-30 16:17] VITALS: BP 120/71
[2020-10-30] MEDS: QUEtiapine FUMARATE 100 MG TABLET PO SCH (20:58)
[2020-10-30] MEDS: MIRTAZAPINE 30 MG TABLET PO SCH (20:58)
[2020-10-31 01:47] VITALS: BP 119/68
[2020-10-31 08:02] LABS: COVID AG,FIA SOURCE NASOPHARYNGEAL
[2020-10-31 08:21] VITALS: BP 107/64
[2020-10-31 16:20] VITALS: BP 130/69
[2020-10-31] MEDS: MIRTAZAPINE 30 MG TABLET PO SCH (20:14)
[2020-10-31] MEDS: QUEtiapine FUMARATE 100 MG TABLET PO SCH (20:14)
[2020-11-01 02:13] VITALS: BP 129/70
[2020-11-01 08:24] VITALS: BP 120/76
[2020-11-01 17:11] VITALS: BP 120/72
[2020-11-01] MEDS: MIRTAZAPINE 30 MG TABLET PO SCH (20:04)
[2020-11-01] MEDS: QUEtiapine FUMARATE 100 MG TABLET PO SCH (20:04)
[2020-11-02 01:26] VITALS: BP 121/70
[2020-11-02 08:21] VITALS: BP 112/64
[2020-11-02 18:33] VITALS: BP 116/71
[2020-11-02] MEDS: MIRTAZAPINE 30 MG TABLET PO SCH (20:54)
[2020-11-02] MEDS: QUEtiapine FUMARATE 100 MG TABLET PO SCH (20:54)
[2020-11-03 05:13] VITALS: BP 144/87
[2020-11-03 08:49] VITALS: BP 117/71
[2020-11-03 16:27] VITALS: BP 141/83
[2020-11-03] MEDS: QUEtiapine FUMARATE 100 MG TABLET PO SCH (20:43)
[2020-11-03] MEDS: MIRTAZAPINE 30 MG TABLET PO SCH (20:43)
[2020-11-04 06:37] VITALS: BP 110/64
[2020-11-04 08:08] VITALS: BP 101/58
[2020-11-04] MEDS ORDERED: MIRT30 PO (10:41)
[2020-11-04] MEDS ORDERED: QUET100T PO (10:41)
[2020-11-04 16:26] VITALS: BP 125/81
== END 2020-11-04 16:50 | disposition home or self-care (01) | DRG 750 ==
LOC: B2S 13:06 → UNDOADMIN 13:06 → B2S 13:32
DX: F25.1 Schizoaffective disorder, depressive type (principal); R45.851 Suicidal ideations; Z59.0 Homelessness; F10.10 Alcohol abuse, uncomplicated; F12.90 Cannabis use, unspecified, uncomplicated; F15.90 Other stimulant use, unspecified, uncomplicated; F17.200 Nicotine dependence, unspecified, uncomplicated; J45.909 Unspecified asthma, uncomplicated; K21.9 Gastro-esophageal reflux disease without esophagitis; Z87.11 Personal history of peptic ulcer disease; Z91.5 Personal history of self-harm; Z88.5 Allergy status to narcotic agent; Z79.899 Other long term (current) drug therapy; Z20.822 Contact with and (suspected) exposure to COVID-19
CPT/HCPCS: 80053; 80061; 80307; 81003; 84439; 84443; 85025; 86592